=== PATIENT | female | born 1990 | race Caucasian/White ===

== ENCOUNTER 2017-10-29 03:21 | Emergency (ER) | payer MEDICAID, SELFPAY ==
[2017-10-29 03:24] VITALS: BP 133/80; PULSE 72; RESP 12; TEMP 36.8; O2SAT 100; BMI 31.2
--- NOTE | 2017-10-29 03:39 | HMH.EDMCLR ---
ED Disposition Clinical Impression: Medical clearance for incarceration Disposition: Home, Self-Care Condition on Discharge: Good Instructions: Drug Abuse and Drug Addiction - Critical Care Critical Care Time: No Attestation: On , the high probability of a clinically significant, sudden or life threatening deterioration of the following system(s) required my full and direct attention, intervention and personal management. The time I documented below is in addition to time spent performing reported procedures but includes the following listed in this critical care notation. Medical Decision Making - Medical Records Medical records reviewed: Yes: I reviewed the patient's medical records. Vital Signs: 10/29/17 03:24 Temperature 98.3 F Temperature Source Oral Pulse Rate [Left Radial] 72 Respiratory Rate 12 Blood Pressure [Right Arm] 133/80 Blood Pressure Mean [Right Arm] 97 Blood Pressure Source [Right Arm] Automatic Cuff Blood Pressure Position [Right Arm] Sitting 02 Sat by Pulse Oximetry 100 Oxygen Delivery Method Room Air - Lab Data Lab results reviewed: Yes: I reviewed the patient's lab results. - Chandan Inquiry Pt receiving controlled substance: No Medical Clearance HPI - General Chief complaint: Medical Clearance Stated complaint: medical clearance Time Seen by Provider: 10/29/17 03:39 Mode of Arrival: Ambulatory Description of Symptoms (Recalled from ER Triage Doc. by RN): Pt here for medical clearance - History of Present Illness HPI Narrative: no complaints - last used heroin sat am complaint: medical clearance requested Onset (ago): day(s) Home medications: Home Medications Medication Instructions Recorded Confirmed No Known Home Medications [No 10/29/17 10/29/17 Known Home Medications] Allergies/Adverse reactions: Allergies Allergy/AdvReac Type Severity Reaction Status Date / Time amoxicillin [From AMOXIL] Allergy Intermediate I-RASH Unverified 09/12/17 14:49 Penicillins [PENICILLINS] Allergy Intermediate I-RASH Unverified 09/12/17 14:49 [facility] History I have reviewed the patient's past medical history: Yes Medical History: Denies:: Cancer, Diabetes Mellitus Type 1, Diabetes Mellitus Type 2, MRSA Laterality Cases: Bilateral: Tonsillectomy Amputation: No Fractures: No - *Social History Educational Level: Attended College Smoking Status: Current every day smoker Tobacco Type: cigarettes # Packs/Day (cigarettes): 1 Alcohol Intake: never Substance Use Type: marijuana, heroin - Psychiatric History Expresses thoughts of harming self/others: None Suicide Plan Description: No Plan ROS Obtained: Yes All systems reviewed & no additional complaints - Constitutional Constitutional: Denies fever(s) - Eyes Eyes: Denies change in vision - ENT Ears, Nose, Mouth, and Throat: Denies sore throat - Cardiovascular Cardiovascular: Denies chest pain - Respiratory Respiratory: No cough - Gastrointestinal Gastrointestingal: Denies: nausea, vomiting - Musculoskeletal Musculoskeletal: Denies joint pain, Denies joint stiffness, Denies joint swelling - Integumentary/Breasts Skin/Breast: Denies rash - Neurologic Neurologic: Denies dizziness, Denies seizure-like activity Physical Exam - General General appearance: alert, in no apparent distress - Head Head exam: atraumatic, normocephalic - Eye Eye exam: Present: PERRL, EOMI. Absent: scleral icterus - ENT ENT exam: Present: mucous membranes dry - Neck Neck exam: Present: trachea midline - Respiratory Respiratory exam: Present: normal lung sounds bilaterally. Absent: respiratory distress - Cardiovascular Cardiovascular exam: Present: regular rate. Absent: systolic murmur - Abdominal Exam Abdominal exam: Present: soft - Extremities Exam Extremities exam: Present: full ROM - Neurological Exam Neurological exam: Present: alert, oriented X3, CN II-XII intact - Psychiatric
--- NOTE | 2017-10-29 03:43 | ED_ITS ---
ED Disposition Clinical Impression: Medical clearance for incarceration Disposition: Home, Self-Care Condition on Discharge: Good Instructions: Drug Abuse and Drug Addiction - Critical Care Critical Care Time: No Attestation: On , the high probability of a clinically significant, sudden or life threatening deterioration of the following system(s) required my full and direct attention, intervention and personal management. The time I documented below is in addition to time spent performing reported procedures but includes the following listed in this critical care notation. Medical Decision Making - Medical Records Medical records reviewed: Yes: I reviewed the patient's medical records. Vital Signs: 10/29/17 03:24 Temperature 98.3 F Temperature Source Oral Pulse Rate [Left Radial] 72 Respiratory Rate 12 Blood Pressure [Right Arm] 133/80 Blood Pressure Mean [Right Arm] 97 Blood Pressure Source [Right Arm] Automatic Cuff Blood Pressure Position [Right Arm] Sitting 02 Sat by Pulse Oximetry 100 Oxygen Delivery Method Room Air - Lab Data Lab results reviewed: Yes: I reviewed the patient's lab results. - Chandan Inquiry Pt receiving controlled substance: No Medical Clearance HPI - General Chief complaint: Medical Clearance Stated complaint: medical clearance Time Seen by Provider: 10/29/17 03:39 Mode of Arrival: Ambulatory Description of Symptoms (Recalled from ER Triage Doc. by RN): Pt here for medical clearance - History of Present Illness HPI Narrative: no complaints - last used heroin sat am complaint: medical clearance requested Onset (ago): day(s) Home medications: Home Medications Medication Instructions Recorded Confirmed No Known Home Medications [No 10/29/17 10/29/17 Known Home Medications] Allergies/Adverse reactions: Allergies Allergy/AdvReac Type Severity Reaction Status Date / Time amoxicillin [From AMOXIL] Allergy Intermediate I-RASH Unverified 09/12/17 14:49 Penicillins [PENICILLINS] Allergy Intermediate I-RASH Unverified 09/12/17 14:49 [facility] History I have reviewed the patient's past medical history: Yes Medical History: Denies:: Cancer, Diabetes Mellitus Type 1, Diabetes Mellitus Type 2, MRSA Laterality Cases: Bilateral: Tonsillectomy Amputation: No Fractures: No - *Social History Educational Level: Attended College Smoking Status: Current every day smoker Tobacco Type: cigarettes # Packs/Day (cigarettes): 1 Alcohol Intake: never Substance Use Type: marijuana, heroin - Psychiatric History Expresses thoughts of harming self/others: None Suicide Plan Description: No Plan ROS Obtained: Yes All systems reviewed & no additional complaints - Constitutional Constitutional: Denies fever(s) - Eyes Eyes: Denies change in vision - ENT Ears, Nose, Mouth, and Throat: Denies sore throat - Cardiovascular Cardiovascular: Denies chest pain - Respiratory Respiratory: No cough - Gastrointestinal Gastrointestingal: Denies: nausea, vomiting - Musculoskeletal Musculoskeletal: Denies joint pain, Denies joint stiffness, Denies joint swelling - Integumentary/Breasts Skin/Breast: Denies rash - Neurologic Neurologic: Denies dizziness, Denies seizure-like activity Physical Exam
[2017-10-29 03:55] VITALS: BP 130/78; PULSE 74; RESP 16; TEMP 36.9; O2SAT 100
== END 2017-10-29 03:57 | disposition home or self-care (01) ==
PROVIDERS: Emergency Provider Emergency Medicine
DX: Z02.89 Encounter for other administrative examinations (principal); F12.10 Cannabis abuse, uncomplicated; F11.10 Opioid abuse, uncomplicated; F17.210 Nicotine dependence, cigarettes, uncomplicated; F41.8 Other specified anxiety disorders; Z88.0 Allergy status to penicillin; Z88.1 Allergy status to other antibiotic agents
CPT/HCPCS: 99203; 99281

== ENCOUNTER → 2018-01-02 15:34 | Outpatient (CLI) | payer MEDICAID, SELFPAY ==
--- NOTE | 2018-01-02 15:41 | XR_ITS ---
XR KUB HISTORY: ITS.REASON: RT FLANK PAIN ORDERING PHYSICIAN: Jess Osborne PATIENT AGE: 27 years COMPARISON: None FINDINGS: The bowel gas pattern is unremarkable. No obvious obstruction.. No abnormal calcifications are evident. No obvious renal or ureteral calculi.. No acute bony anomalies evident. There is mild amount retained colonic feces. This could obscure overlying renal calculi. IMPRESSION: Mild amount retained colonic feces otherwise negative KUB
== END ==
PROVIDERS: PCP Nurse Practitioner Family; Visit Provider Nurse Practitioner Family
DX: R10.9 Unspecified abdominal pain (principal)
CPT/HCPCS: 74018

== ENCOUNTER → 2018-08-15 14:20 | Outpatient (CLI) | payer MEDICAID, SELFPAY ==
--- NOTE | 2018-08-15 14:20 | US_ITS ---
US OB transvaginal HISTORY: ITS.REASON: US OB Dates ORDERING PHYSICIAN: Terry Ahmadi MD PATIENT AGE: 27 years COMPARISON: None FINDINGS: An intrauterine gestational sac is present with a pole with a crown-rump length of 2.11cm correlating to gestational age of 8w6d. heart tones are present with an FHR of 151 bpm's. Yolk sac is noted. Adnexa: Left ovary not visualized. Right ovary has an unremarkable appearance. Small amount fluid in the cul-de-sac. IMPRESSION: Live intrauterine gestation at 8 weeks 6 days as described above. Estimated due date by Ultrasound is 03/21/2019
== END ==
PROVIDERS: PCP Family Medicine; Visit Provider Nurse Practitioner Obstetrics & Gynecology
DX: O26.841 Uterine size-date discrepancy, first trimester (principal)
CPT/HCPCS: 76817

== ENCOUNTER → 2018-10-29 13:22 | Outpatient (CLI) | payer MEDICAID, SELFPAY ==
--- NOTE | 2018-10-29 13:24 | US_ITS ---
US OB /maternal detail: INDICATION: ITS.REASON: US OB Complete ORDERING PHYSICIAN: Terry Ahmadi MD PATIENT AGE: 27 years TECHNIQUE: ultrasound transabdominal scanning. COMPARISON: No previous relevant studies. FINDINGS: Single viable intrauterine gestation. Cephalic position. Placenta: Posterior placenta grade 1. There is average amount fluid. The cervix appears satisfactory. Closed and measuring 3 cm in length. Complete survey performed and was unremarkable on the submitted images as in PACS. No discrete anomalies identified on survey imaging by technologist. Active fetus. Three-vessel cord with satisfactory umbilical cord insertion. 4- chamber heart noted. Survey of brain & ventricles unremarkable. Face and neck survey unremarkable. The nasion is not well seen due to the position Diaphragm and chest views unremarkable. Abdomen: Both kidneys noted and unremarkable. Stomach noted and satisfactory. Spine: Survey of the spine satisfactory with no anomalies identified nor imaged. Both arms and legs noted. Amniotic Fluid: Adequate. Maternal adnexa: No significant findings. Measurements: Average ultrasound age 19w6d. Gestational Age 19w4d. Estimated due date by ultrasound age 0603/19/2019/. Estimated weight 312 grams. BPD = 20w1d OFD = 20w2d HC = 19w3d AC = 20w2d FL = 19w2d Growth Percentile= 57% Heart Rate = 135 Cerebellum = 20w2d Humerus = 20w4d HC/AC is 1.11 (1.09-1.26). CI is 79% (70-86%). FL/BPD is 64%. FL/AC is 20%. IMPRESSION: There is a single live fetus which is in cephalic presentation with an average ultrasound age of 19 weeks and 6 days. No obvious anomalies. All parameters correlate. Please see above for detail.
[2018-11-09 23:12] LABS: Buprenorphine POSITIVE; Buprenorphine, Urine POSITIVE; Norbuprenorphine POSITIVE
== END ==
PROVIDERS: PCP Family Medicine; Visit Provider Nurse Practitioner Obstetrics & Gynecology
DX: Z36.0 Encounter for antenatal screening for chromosomal anomalies (principal); Z34.90 Encounter for supervision of normal pregnancy, unspecified, unspecified trimester
CPT/HCPCS: 76811; 80307

== ENCOUNTER → 2018-10-29 18:10 | Outpatient (CLI) | payer MEDICAID, SELFPAY | PROVIDERS: Visit Provider Nurse Practitioner Obstetrics & Gynecology | DX: Z34.90 Encounter for supervision of normal pregnancy, unspecified, unspecified trimester (principal) | CPT/HCPCS: 80307 ==

== ENCOUNTER 2018-12-04 09:48 | Outpatient (CLI) | payer MEDICAID, SELFPAY ==
[2018-12-04 10:18] VITALS: BP 117/72; PULSE 91; RESP 18; TEMP 36.9; O2SAT 97; BMI 33.6
[2018-12-04 10:25] LABS: Microscopic, Urine URINE MICROSCOPIC (MICROSCOPIC)
[2018-12-04 10:29] LABS: Appearance,Urine CLEAR (Clear); Bilirubin,Urine Negative (Negative); Blood, Urine Negative (Negative); Color,Urine YELLOW (Yellow); Glucose,Urine (UA) Negative (Negative); Ketones,Urine Negative (Negative); Leukocyte Esterase,Urine Negative (Negative); Nitrate,Urine Negative (Negative); Protein,Urine Negative (Negative); Specific Gravity, Urine 1.015 (1.005-1.030); Urobilinogen,Urine 0.2 EU/dl (0.2)
[2018-12-04 10:38] LABS: Amphetamine/Metha Screen,Urine Negative ng/mL (<1000); Barbiturates Screen,Urine Negative ng/mL (<200); Benzodiazepines Screen,Urine Negative ng/mL (<200); Cannabinoid Screen,Urine Negative ng/mL (<50); Cocaine Screen,Urine Negative ng/mL (<300); Methadone Screen,Urine Negative ng/mL (<300); Opiate Screen,Urine Negative ng/mL (<300); Phencyclidine Screen,Urine Negative ng/mL (<25)
[2018-12-04 10:45] VITALS: PULSE 86
[2018-12-04 10:59] LABS: Bacteria,Urine Trace /lpf; WBC,Urine Occasional #/hpf (0-3)
[2018-12-04 11:08] LABS: Fetal Fibronectin (Rapid) Negative (Negative)
== END 2018-12-04 11:15 | disposition home or self-care (01) ==
LOC: OBOUT 09:51 → OB 09:52
PROVIDERS: PCP Family Medicine; Visit Provider Nurse Practitioner Obstetrics & Gynecology
DX: O26.892 Other specified pregnancy related conditions, second trimester (principal); Z3A.24 24 weeks gestation of pregnancy; R05 Cough; R10.2 Pelvic and perineal pain
CPT/HCPCS: 59025; 80305; 81001; 82731; 94640

== ENCOUNTER → 2018-12-26 15:05 | Outpatient (CLI) | payer MEDICAID, SELFPAY ==
[2018-12-26 15:44] LABS: Basophils % 0.4 % (0.1-2.0); Eosinophils # 0.2 K/mm3 (0.0-0.4); Eosinophils % 2.6 % (0.1-12.0); Hematocrit 31.3 % (37.0-47.0); Lymphocytes % 34.8 % (10-50); Mean Corpuscular HGB Conc 35.1 g/dL (31.8-35.4); Mean Corpuscular Hemoglobin 30.8 pg (27.0-31.2); Mean Corpuscular Volume 87.8 fl (81-99); Mean Platelet Volume 7.6 fl (7.4-10.4); Monocytes # 0.4 K/mm3 (0.1-1.0); Monocytes % 4.9 % (1.7-9.3); Neutrophils # 4.9 K/mm3 (1.8-7.8); Neutrophils % 57.3 % (37.0-80.0); Platelet Count 254 K/mm3 (142-424); Red Blood Count 3.57 M/mm3 (4.20-5.40); Red Cell Distribution Width 13.4 % (11.5-17.5); White Blood Count 8.6 K/mm3 (4.8-10.8)
[2018-12-28 09:24] LABS: HIV Screen 4th Generation wRfx Non Reactive (Non Reactive)
[2018-12-28 17:20] LABS: Hepatitis B Surface Antigen Negative (Negative); Hepatitis C Antibody >11.0 s/co ratio (0.0-0.9); Rapid Plasma Reagin Ab Titer Non Reactive (NonRea<1:1)
== END ==
PROVIDERS: Visit Provider Nurse Practitioner Obstetrics & Gynecology
DX: Z34.90 Encounter for supervision of normal pregnancy, unspecified, unspecified trimester (principal)
CPT/HCPCS: 36415; 85025; 86592; 86703; 86762; 86850; 87340; 87380; G0432

== ENCOUNTER → 2018-12-27 12:07 | Outpatient (CLI) | payer MEDICAID, SELFPAY | PROVIDERS: PCP Family Medicine; Visit Provider Internal Medicine Cardiovascular Disease | DX: R00.2 Palpitations (principal); R06.09 Other forms of dyspnea; R07.89 Other chest pain; Z3A.23 23 weeks gestation of pregnancy; Z72.0 Tobacco use; Z87.898 Personal history of other specified conditions | CPT/HCPCS: 93270 ==

== ENCOUNTER → 2019-01-03 10:44 | Outpatient (CLI) | payer MEDICAID, SELFPAY ==
--- NOTE | 2019-01-03 10:46 | CA_ITS ---
PROCEDURE: 2-D M-mode and color Doppler study INDICATIONS FOR THE TEST: Chest painX COPD Heart Murmur Tobacco SmokingX PalpitationsX Fatigue Syncope Edema Hypertension Diabetes Mellitus Rheumatic Fever SOB DOEXObesity Hyperlipidemia Family History HDX Additional History H/O DRUG ABUSE,29 WEEKS PREGANT PATIENT INFORMATION HEIGHT: 61 WEIGHT:181 GENDER: Female B/P:110/73 2-D/M-MODE INTERPRETATION: 2-D MEASUREMENTS OBSERVED VALUES IN CMS Right Ventricular Dimension (RVDd) 2.1 Interventricular Septum (Thickness)(IVsd) 1.0 Left Ventricular Internal Dimensions(LVIDd) 4.9 Left Ventricular Posterior Wall (Thickness)(LVPWd) .9 Aortic Root 3.2 Aortic Cusp Separation 1.6 Left Atrial Dimensions (LAD) 2.5 2D 1. Left atrium is normal size, left ventricle is normal size, there is no concentric left ventricular hypertrophy, visually estimated ejection fraction 55% with no regional wall motion abnormality. 2. The right atrium and ventricle are normal size and contractility. 3. The aortic, mitral and tricuspid valvular grossly normal. 4. The pulmonic valve is poorly visualized. 5. No significant pericardial effusion noted. DOPPLER INTERROGATION: Doppler interrogation of the aortic, mitral and tricuspid valvular presence of mild mitral and tricuspid regurgitation, tricuspid regurgitation jet velocity is inadequate for calculation of the right ventricular systolic pressure, diastolic parameters are within normal range. CONCLUSION: 1. Normal left ventricular size, preserved left ventricular systolic function, visually estimated ejection fraction 55% with no regional wall motion abnormality, diastolic parameters are within normal range. 2. Mild mitral and tricuspid regurgitation, tricuspid regurgitation jet velocity is inadequate for calculation of the right ventricular systolic pressure. Inferior vena cava is not well visualized 3. No significant pericardial effusion noted.
== END ==
PROVIDERS: PCP Family Medicine; Visit Provider Internal Medicine Cardiovascular Disease
DX: R00.2 Palpitations (principal); R06.09 Other forms of dyspnea; R07.89 Other chest pain; Z3A.23 23 weeks gestation of pregnancy; Z72.0 Tobacco use; Z87.898 Personal history of other specified conditions
CPT/HCPCS: 93306

== ENCOUNTER → 2019-01-15 09:50 | Outpatient (CLI) | payer MEDICAID, SELFPAY ==
[2019-01-15 13:17] LABS: Glucose 1 Hour 94 mg/dL (74-106); Glucose,Fasting 81 mg/dL (60-105)
== END ==
PROVIDERS: Visit Provider Nurse Practitioner Obstetrics & Gynecology
DX: Z34.90 Encounter for supervision of normal pregnancy, unspecified, unspecified trimester (principal)
CPT/HCPCS: 36415; 82951

== ENCOUNTER → 2019-01-17 13:32 | Outpatient (CLI) | payer MEDICAID, SELFPAY ==
--- NOTE | 2019-01-17 13:34 | US_ITS ---
US OB follow up: Indication: ITS.REASON: US OB F/U- Recheck Anatomy ORDERING PHYSICIAN: Terry Ahmadi MD PATIENT AGE: 28 years FINDINGS: Previously the nasion was not identified on the anatomy scan of 10/29/2018. Today's images do demonstrate the nasion region which has an unremarkable appearance. The following parameters are obtained: Average ultrasound age is 30w1d. Estimated due date by ultrasound is 03/27/2019. Estimated weight is 1517 grams which is 15 th percentile BPD: 29w4d OFD: 30w6d HC: 30w1d AC: 30w2d FL: 30w1d heart rate: 142 bpm. HC/AC: 1.05 (0.96-1.17) Cephalic index: 74% (70-86%) FL/BPD: 78% (71-87%) FL/AC: 22% (20-24%) Amniotic fluid index: 9 cm No obvious anomalies evident. Placenta: Post GR 1 Cervix: Appears closed IMPRESSION: Live IUP at 30 weeks and 1 day. No obvious anomalies. Specifically, the nasion has an unremarkable appearance. The CHEPE is at lower limits of normal at 9 cm
== END ==
PROVIDERS: PCP Family Medicine; Visit Provider Nurse Practitioner Obstetrics & Gynecology
DX: Z36.89 Encounter for other specified antenatal screening (principal)
CPT/HCPCS: 76816

== ENCOUNTER 2019-02-13 06:36 | Outpatient (CLI) | payer MEDICAID, SELFPAY ==
[2019-02-13 06:46] VITALS: BMI 34.4
[2019-02-13 06:56] LABS: Appearance,Urine SL CLOUDY (Clear); Bilirubin,Urine Negative (Negative); Blood, Urine 3+ (Negative); Color,Urine YELLOW (Yellow); Glucose,Urine (UA) Negative (Negative); Ketones,Urine Negative (Negative); Leukocyte Esterase,Urine TRACE (Negative); Microscopic, Urine URINE MICROSCOPIC (MICROSCOPIC); Nitrate,Urine Negative (Negative); PH,Urine 6.5 (5.0-8.5); Protein,Urine TRACE (Negative); Urobilinogen,Urine 0.2 EU/dl (0.2)
[2019-02-13 06:59] VITALS: BP 134/70; PULSE 82; RESP 16; TEMP 36.7; O2SAT 100; BMI 34.4
[2019-02-13 07:04] LABS: Amphetamine/Metha Screen,Urine Negative ng/mL (<1000); Barbiturates Screen,Urine Negative ng/mL (<200); Benzodiazepines Screen,Urine Negative ng/mL (<200); Cannabinoid Screen,Urine Negative ng/mL (<50); Cocaine Screen,Urine Negative ng/mL (<300); Methadone Screen,Urine Negative ng/mL (<300); Opiate Screen,Urine Negative ng/mL (<300); Phencyclidine Screen,Urine Negative ng/mL (<25)
[2019-02-13 07:05] LABS: Bacteria,Urine Trace /lpf; Squamous Epithelial Cell,Urine 20-50 #/hpf (0-5); WBC,Urine Occasional #/hpf (0-3)
--- NOTE | 2019-02-13 07:14 | US_ITS ---
US OB BPP w/Fet-Mat S/D: Indication: Heavy vaginal bleeding ITS.REASON: R/O abruption ORDERING PHYSICIAN: Terry Ahmadi MD PATIENT AGE: 28 years FINDINGS: The following parameters are obtained: Average ultrasound age is 35 weeks 1 day. Estimated due date by ultrasound is 03/19/2019. Estimated weight is 2563 g. This is 50th percentile BPD: 34 weeks 2 days OFD: 39 weeks 0 days HC: 35 weeks 4 days AC: 34 weeks 6 days FL: 35 weeks 4 days heart rate: 149 bpm. HC/AC: 1.03 Cephalic index: 75% FL/BPD: 82% FL/AC: 23% Amniotic fluid index: 11 cm Qualitative AFV: 2 breathing movements: 2 Gross body movements: 2 Tone: 2 Biophysical profile score: 8/8 Doppler evaluation of the umbilical artery: SD ratio: 3.9 Resistive index: 0.74 No obvious anomalies evident. Placenta: Posterior and fundal and grade 2. Heterogeneous echogenicity is noted along the superior margin of placenta and along the amniotic surface of the placenta suspicious for a blood clot which could be related to an abruption along superior margin. The cervical area is not well demonstrated. IMPRESSION: 1. There is a single live fetus which is in cephalic presentation with average ultrasound age of 35 weeks and 1 day. heart tones are present. 2. Biophysical profile is 8 of 8. Normal amniotic fluid volume 3. SD ratio in resistive index are slightly elevated 4. There is heterogeneous echogenicity along the superior margin of the placenta suggestive of hemorrhage possibly from an abruption. The cervix is not well demonstrated on these images to adequately evaluate for previa.
[2019-02-13 08:02] LABS: Basophils % 0.3 % (0.1-2.0); Eosinophils # 0.2 K/mm3 (0.0-0.4); Eosinophils % 2.4 % (0.1-12.0); Hematocrit 33.1 % (37.0-47.0); Hemoglobin 11.8 g/dL (12.2-16.2); Lymphocytes # 4.3 K/mm3 (0.7-4.5); Lymphocytes % 44.7 % (10-50); Mean Corpuscular HGB Conc 35.6 g/dL (31.8-35.4); Mean Corpuscular Volume 87.1 fl (81-99); Mean Platelet Volume 8.6 fl (7.4-10.4); Monocytes # 0.6 K/mm3 (0.1-1.0); Monocytes % 6.3 % (1.7-9.3); Neutrophils # 4.5 K/mm3 (1.8-7.8); Neutrophils % 46.3 % (37.0-80.0); Platelet Count 222 K/mm3 (142-424); Red Blood Count 3.81 M/mm3 (4.20-5.40); Red Cell Distribution Width 12.7 % (11.5-17.5); White Blood Count 9.6 K/mm3 (4.8-10.8)
--- NOTE | 2019-02-13 08:09 | HMH.DCSUM ---
General - General Admission date:: 02/13/19 Discharge date: 02/13/19 HPI HPI: She is a 28-year-old 3 para 2 at 34+ weeks gestational age. She woke up this morning with vaginal bleeding. She came into labor and delivery. She does admit to having sexual intercourse last night. She has had 2 previous sections. She is a smoker and smokes about 3 cigarettes a day. She takes Subutex 16 mg daily. Hospital Course Hospital Course: She came into labor and delivery with contractions and vaginal bleeding. On examination her cervix is just 1 cm. There was copious blood in the vagina. She is however not actively bleeding at this point in time. Ultrasound shows the baby in the cephalic presentation with an anterior placenta. Amniotic fluid index is 11. Biophysical profile is 8 out of 8. Baby was very active. The nonstress test is reactive. SD ratio is 4.0. On the anterior placenta on the side there seems to be an area about 7 cm x 4 cm it looks like clot. There is no evidence of lower placental abruption or posterior abruption of the placenta. The area in question on the anterior placenta had no blood flow. I have spoken to Dr. Ravi at [facility] and we will transfer her to his care. She has received 1 dose of 12 mg Celestone and magnesium sulfate for her contractions. She has A positive blood, she is rubella immune and was group B streptococcus negative. She has hepatitis C+ antibodies. HIV and hepatitis B are negative. Objective Vital signs: Temp Pulse Resp BP Pulse Ox 98.1 F 82 16 134/70 100 02/13/19 06:59 02/13/19 06:59 02/13/19 06:59 02/13/19 06:59 02/13/19 06:59 - Detailed Eye Exam Eyelids: Left normal inspection Results Labs on day of discharge: Labs from last 24 hours 02/13/19 02/13/19 02/13/19 07:50 07:30 06:45 WBC 9.6 RBC 3.81 L Hgb 11.8 L Hct 33.1 L MCV 87.1 MCH 31.0 MCHC 35.6 H RDW 12.7 Plt Count 222 MPV 8.6 Neut % (Auto) 46.3 Lymph % (Auto) 44.7 [place] % (Auto) 6.3 Eos % (Auto) 2.4 Baso % (Auto) 0.3 Neut # (Auto) 4.5 Lymph # (Auto) 4.3 [place] # (Auto) 0.6 Eos # (Auto) 0.2 Baso # (Auto) 0.0 Urine Color Yellow Urine Appearance Sl cloudy Urine pH 6.5 Ur Specific [place] 1.010 Urine Protein Trace Urine Glucose (UA) Negative Urine Ketones Negative Urine Blood 3+ Urine Nitrate Negative Urine Bilirubin Negative Urine Urobilinogen 0.2 Ur Leukocyte Esterase Trace Urine RBC 3-5 Urine WBC Occasional Ur Squamous Epith Cells 20-50 Urine Bacteria Trace Urine Opiates Screen Urine Methadone Screen Ur Barbituates Screen Ur Phencyclidine Scrn Ur Amphetamines Screen U Benzodiazepines Scrn Urine Cocaine Screen U Marijuana (THC) Screen Blood Type Pending Antibody Screen Pending 02/13/19 06:45 WBC RBC Hgb Hct MCV MCH MCHC RDW Plt Count MPV Neut % (Auto) Lymph % (Auto) [place] % (Auto) Eos % (Auto) Baso % (Auto) Neut # (Auto) Lymph # (Auto) [place] # (Auto) Eos # (Auto) Baso # (Auto) Urine Color Urine Appearance Urine pH Ur Specific [place] Urine Protein Urine Glucose (UA) Urine Ketones Urine Blood Urine Nitrate Urine Bilirubin Urine Urobilinogen Ur Leukocyte Esterase Urine RBC Urine WBC Ur Squamous Epith Cells Urine Bacteria Urine Opiates Screen Negative Urine Methadone Screen Negative Ur Barbituates Screen Negative Ur Phencyclidine Scrn Negative Ur Amphetamines Screen Negative U Benzodiazepines Scrn Negative Urine Cocaine Screen Negative U Marijuana (THC) Screen Negative Blood Type Antibody Screen DS: Diagnosis - Discharge Diagnosis (1) Placental abruption Status: Acute (2) Previous section complicating Status: Acute (3) complicated by subutex maintenance, antepartu
--- NOTE | 2019-02-13 08:21 | P.DS_ITS ---
General - General Admission date:: 02/13/19 Discharge date: 02/13/19 HPI HPI: She is a 28-year-old 3 para 2 at 34+ weeks gestational age. She woke up this morning with vaginal bleeding. She came into labor and delivery. She does admit to having sexual intercourse last night. She has had 2 previous sections. She is a smoker and smokes about 3 cigarettes a day. She takes Subutex 16 mg daily. Hospital Course Hospital Course: She came into labor and delivery with contractions and vaginal bleeding. On examination her cervix is just 1 cm. There was copious blood in the vagina. She is however not actively bleeding at this point in time. Ultrasound shows the baby in the cephalic presentation with an anterior placenta. Amniotic fluid index is 11. Biophysical profile is 8 out of 8. Baby was very active. The nonstress test is reactive. SD ratio is 4.0. On the anterior placenta on the side there seems to be an area about 7 cm x 4 cm it looks like clot. There is no evidence of lower placental abruption or posterior abruption of the placenta. The area in question on the anterior placenta had no blood flow. I have spoken to Dr. Ravi at [facility] and we will transfer her to his care. She has received 1 dose of 12 mg Celestone and magnesium sulfate for her contractions. She has A positive blood, she is rubella immune and was group B streptococcus negative. She has hepatitis C+ antibodies. HIV and hepatitis B are negative. Objective Vital signs: Temp Pulse Resp BP Pulse Ox 98.1 F 82 16 134/70 100 02/13/19 06:59 02/13/19 06:59 02/13/19 06:59 02/13/19 06:59 02/13/19 06:59 - Detailed Eye Exam Eyelids: Left normal inspection Results Labs on day of discharge: Labs from last 24 hours 02/13/19 02/13/19 02/13/19 07:50 07:30 06:45 WBC 9.6 RBC 3.81 L Hgb 11.8 L Hct 33.1 L MCV 87.1 MCH 31.0 MCHC 35.6 H RDW 12.7 Plt Count 222 MPV 8.6 Neut % (Auto) 46.3 Lymph % (Auto) 44.7 [place] % (Auto) 6.3 Eos % (Auto) 2.4 Baso % (Auto) 0.3 Neut # (Auto) 4.5 Lymph # (Auto) 4.3 [place] # (Auto) 0.6 Eos # (Auto) 0.2 Baso # (Auto) 0.0 Urine Color Yellow Urine Appearance Sl cloudy Urine pH 6.5 Ur Specific [place] 1.010 Urine Protein Trace Urine Glucose (UA) Negative Urine Ketones Negative Urine Blood 3+ Urine Nitrate Negative Urine Bilirubin Negative Urine Urobilinogen 0.2 Ur Leukocyte Esterase Trace Urine RBC 3-5 Urine WBC Occasional Ur Squamous Epith Cells 20-50 Urine Bacteria Trace Urine Opiates Screen Urine Methadone Screen Ur Barbituates Screen Ur Phencyclidine Scrn Ur Amphetamines Screen U Benzodiazepines Scrn Urine Cocaine Screen U Marijuana (THC) Screen Blood Type Pending Antibody Screen Pending 02/13/19 06:45 WBC RBC Hgb Hct MCV MCH MCHC RD
== END 2019-02-13 08:53 | disposition short-term general hospital (02) | DRG 832 ==
LOC: OBOUT 06:38 → OB 06:40 → OBOUT 07:50 → OB 08:21
PROVIDERS: PCP Family Medicine; Referring Provider Nurse Practitioner Obstetrics & Gynecology; Visit Provider Nurse Practitioner Obstetrics & Gynecology
DX: O45.93 Premature separation of placenta, unspecified, third trimester (principal); O98.413 Viral hepatitis complicating pregnancy, third trimester; O34.211 Maternal care for low transverse scar from previous cesarean delivery; B19.20 Unspecified viral hepatitis C without hepatic coma; O99.333 Smoking (tobacco) complicating pregnancy, third trimester; F17.210 Nicotine dependence, cigarettes, uncomplicated; F19.11 Other psychoactive substance abuse, in remission; Z79.899 Other long term (current) drug therapy; Z3A.34 34 weeks gestation of pregnancy
CPT/HCPCS: 36415; 59025; 76819; 80305; 81001; 85025; 86850; 96360; 96372

== ENCOUNTER 2019-02-17 12:07 | Inpatient (IN) | payer MEDICAID, SELFPAY ==
[2019-02-17] VITALS (32 sets, daily range): BP systolic 90–150; BP diastolic 36–99; PULSE 62–103; RESP 14–20; TEMP 36.3–37.2; O2SAT 97–100; BMI 34.2
[2019-02-17 12:39] LABS: Cord Blood PH 7.21 (7.35-7.45)
[2019-02-17 12:56] LABS: Basophils % 0.2 % (0.1-2.0); Eosinophils # 0.1 K/mm3 (0.0-0.4); Eosinophils % 0.6 % (0.1-12.0); Hematocrit 28.8 % (37.0-47.0); Hemoglobin 10.4 g/dL (12.2-16.2); Lymphocytes % 29.5 % (10-50); Mean Corpuscular HGB Conc 36.1 g/dL (31.8-35.4); Mean Corpuscular Hemoglobin 31.2 pg (27.0-31.2); Mean Corpuscular Volume 86.3 fl (81-99); Mean Platelet Volume 8.5 fl (7.4-10.4); Monocytes # 1.3 K/mm3 (0.1-1.0); Monocytes % 7.5 % (1.7-9.3); Neutrophils # 10.5 K/mm3 (1.8-7.8); Neutrophils % 62.2 % (37.0-80.0); Platelet Count 398 K/mm3 (142-424); Red Blood Count 3.34 M/mm3 (4.20-5.40); Red Cell Distribution Width 12.8 % (11.5-17.5); White Blood Count 16.8 K/mm3 (4.8-10.8)
[2019-02-17 12:57] LABS: MANUAL DIFFERENTIAL MANUAL DIFFERENTIAL (MANUAL DIFF)
--- NOTE | 2019-02-17 13:02 | HMH.OPNOTE ---
Date of procedure: 02/17/19 Pre-op Diagnosis:: Abruptio placenta, vaginal bleeding, previous section Post-op Diagnosis:: Abruption of placenta, vaginal bleeding, previous section Procedure performed:: Emergent lower segment transverse section Surgeon:: Terry Ahmadi MD Pond Worker(s):: Dr. Bjearano FINAL ASSEMBLY INSPECTOR:: Db Akhtar Anesthesia: GETA Estimated blood loss (mL): 1,200 Clinical Note:: She is a 28-year-old lady at 35 weeks gestational age. She has had 2 previous sections. She was seen last week with vaginal bleeding and diagnosed with an abruption. She was sent to by ambulance for consultation and care. She was subsequently released a couple of days ago. She came in with vaginal bleeding and was pouring blood out of the vagina. As a result of that we called a stat section. Operative findings:: She delivered a liveborn male child at 12:32 PM on the afternoon of February 17, 2019. The baby had Apgars of 9 at 1 minute and 9 at 5 minutes. There was an area on the posterior placenta that had old blood clots approximately 10%. The uterus itself was full of old blood clots. Ovaries and tubes appeared normal. Operative note:: She was taken to the operating room where general anesthesia was found be adequate. She was prepped and draped in normal sterile fashion in the supine position with a leftward tilt. A Guerra catheter was in the bladder. A Pfannenstiel skin incision was made with knife then carried through to the underlying layer of fascia with knife. The fascia was opened in the midline with knife and extended laterally using Martinez scissors. [place] clamps were applied to the superior aspect of the fascial incision which was tented up and the underlying rectus muscles dissected off using Martinez scissors. The Linda clamps were then applied to the inferior aspect of the fascial incision which in a similar fashion was tented up and the underlying rectus muscles dissected off using Martinez scissors. The rectus muscles were then in the midline, the peritoneum identified, and entered sharply with Metzenbaum scissors. This incision was then extended superiorly and inferiorly with scissors. We had good visualization of the bladder inferiorly.The bladder peritoneum was then opened in the midline and extended laterally using Metzenbaum scissors. A bladder flap was created digitally. Transverse incision was made through the uterine muscle to the amnion. This incision was then extended laterally using fingers traction. The amnion was entered sharply with knife. There was clear amniotic fluid. The infant's head was then delivered atraumatically. This was followed by the anterior shoulder and the rest of the 's body atraumatically. The oropharynx and nasopharynx were bulb suctioned. The was then handed off to Dr. Ayala who assigned Apgars of 9 at 1 minute and 9 at 5 minutes. We then obtained cord blood as well as cord pH. Using gentle traction on the cord and countertraction on the fundus I was able to easily deliver the placenta intact. It had a normal three-vessel cord. The uterus was then cleared of clots and debris . There was a handful of old clot within the uterus. The uterine incision was then closed using running 0 Vicryl suture in a locked fashion. A second layer of the same suture was used to imbricate the first layer. There was a small blood vessel on the left side that was oozing and I applied [id number] sutures here to obtain excellent hemostasis. The bladder peritoneum was then closed using running 2-0 Vicryl suture in a locked fashion. The gutters and cul-de-sac were then cleared of clots and debris . Once again hemostasis was assured. The peritoneum was grasped with Anum clamps and closed using running 2-0 Vicryl suture. The rectus muscles were then reapproximated using running 0 Vicryl suture. The fascia was closed using running #1 Vicryl suture. The subcutaneous tissues
[2019-02-17 13:03] LABS: Microscopic, Urine URINE MICROSCOPIC (MICROSCOPIC)
--- NOTE | 2019-02-17 13:08 | P.OP_ITS ---
Date of procedure: 02/17/19 Pre-op Diagnosis:: Abruptio placenta, vaginal bleeding, previous section Post-op Diagnosis:: Abruption of placenta, vaginal bleeding, previous section Procedure performed:: Emergent lower segment transverse section Surgeon:: Terry Ahmadi MD Electrical Fitter(s):: Dr. Bejarano BEAUTY SALES ADVISOR:: Db Akhtar Anesthesia: GETA Estimated blood loss (mL): 1,200 Clinical Note:: She is a 28-year-old lady at 35 weeks gestational age. She has had 2 previous sections. She was seen last week with vaginal bleeding and diagnosed with an abruption. She was sent to by ambulance for consultation and care. She was subsequently released a couple of days ago. She came in with vaginal bleeding and was pouring blood out of the vagina. As a result of that we called a stat section. Operative findings:: She delivered a liveborn male child at 12:32 PM on the afternoon of February 17, 2019. The baby had Apgars of 9 at 1 minute and 9 at 5 minutes. There was an area on the posterior placenta that had old blood clots approximately 10%. The uterus itself was full of old blood clots. Ovaries and tubes appeared normal. Operative note:: She was taken to the operating room where general anesthesia was found be adequate. She was prepped and draped in normal sterile fashion in the supine position with a leftward tilt. A Guerra catheter was in the bladder. A Pfannenstiel skin incision was made with knife then carried through to the underlying layer of fascia with knife. The fascia was opened in the midline with knife and extended laterally using Martinez scissors. [place] clamps were applied to the superior aspect of the fascial incision which was tented up and the underlying rectus muscles dissected off using Martinez scissors. The Linda clamps were then applied to the inferior aspect of the fascial incision which in a similar fashion was tented up and the underlying rectus muscles dissected off using Martinez scissors. The rectus muscles were then in the midline, the peritoneum identified, and entered sharply with Metzenbaum scissors. This incision was then extended superiorly and inferiorly with scissors. We had good visualization of the bladder inferiorly.The bladder peritoneum was then opened in the midline and extended laterally using Metzenbaum scissors. A bladder flap was created digitally. Transverse incision was made through the uterine muscle to the amnion. This incision was then extended laterally using fingers traction. The amnion was entered sharply with knife. There was clear amniotic fluid. The infant's head was then delivered atraumatically. This was followed by the anterior shoulder and the rest of the 's body atraumatically. The oropharynx and nasopharynx were bulb suctioned. The was then handed off to Dr. Ayala who assigned Apgars of 9 at 1 minute and 9 at 5 minutes. We then obtained cord blood as well as cord pH. Using gentle traction on the cord and countertraction on the fundus I was able to easily deliver the placenta intact. It had a normal three-vessel cord. The uterus was then cleared of clots and debris . There was a handful of old clot within the uterus. The uterine incision was then closed using running 0 Vicryl suture in a locked fashion. A second layer of the same suture was used to imbricate the first layer. There was a small blood vessel on the left side that was oozing and I applied [id number] sutures here to obtain excellent hemostasis. The bladder peritoneum was then closed using running 2-0 Vicryl suture in a locked fashion. The gutters and cul-de-sac were then cleared of clots and debris . Onc
--- NOTE | 2019-02-17 13:10 | XR_ITS ---
XR pelvis 1-2V HISTORY: emergency evaluation for foreign object ORDERING PHYSICIAN: Terry Ahmadi MD PATIENT AGE: 28 years COMPARISON: None FINDINGS: There are multiple transversely oriented surgical tana crossing the lower pelvis. A Guerra catheter seen in place. There is minimal scattered stool in the descending colon and in the rectum. There are no metallic surgical instruments identified in the visualized portion of the lower abdomen and pelvis. IMPRESSION: Postoperative emergency with findings as described
--- NOTE | 2019-02-17 13:10 | HMH.OBAPHP ---
OB - H&P: HPI Antepartum - History of Present Illness Chief complaint: Vaginal bleeding History of present illness: She is a 28-year-old lady at 35 weeks gestational age. She is had 2 previous sections. She was seen in labor and delivery earlier in the week with vaginal bleeding. An abruption was diagnosed. She was sent to [facility] by ambulance for care. She was separately observed there for a few days and then discharged home a couple of days ago. She began having vaginal bleeding this morning. On arrival at the hospital she was bleeding copiously from the vagina. Her cervix was unchanged. heart tones were present. - History of Present Criteria for establishing EDC:: LMP confirmed by 1st trimester US care: good care Ultrasounds: normal 1st trimester US, normal mid trimester US Obstetrical complications: other Medical complications: none, other Narrative: She has hepatitis C positive. [facility] History I have reviewed the patient's past medical history: Yes Medical History: Reports:: Hepatitis, Palpitations Denies:: Cancer, Diabetes Mellitus Type 1, Diabetes Mellitus Type 2, MRSA *Have you ever received a pneumonia vaccine?: No *Have you received a flu vaccine this season?: No Other Medical History: Reports: Other Laterality Cases: Bilateral: Tonsillectomy Other Surgeries: Yes: Amputation: No Fractures: No - *Social History Smoking Status: Current every day smoker Tobacco Type: cigarettes # Packs/Day (cigarettes): 1 Alcohol Intake: never Substance Use Type: former substance user, heroin, IV drugs *Occupational Status:: employed Housing: house Household Members: friend(s) *Travel in the last 8 weeks: None Family Hx:: Coronary Artery Disease, Heart Attack, Diabetes Para: 2 Review of Systems - Review of Systems Review of systems:: pertinent systems reviewed and negative unless documented below Meds Home Medications Medication Instructions Recorded Confirmed Type vits 96-ferrous fumarate 1 tab PO DAILY 30 Days #30 tab 08/06/18 02/13/19 History 27 mg iron-folic acid 800 mcg tablet buprenorphine HCl 8 mg sublingual 8 mg SUBLINGUAL BID 16 Days #16 tab 12/27/18 02/13/19 History tablet Allergies Allergy/AdvReac Type Severity Reaction Status Date / Time amoxicillin [From AMOXIL] Allergy Intermediate I-RASH Verified 02/06/19 15:24 Penicillins [PENICILLINS] Allergy Intermediate I-RASH Verified 02/06/19 15:24 OB - H&P: Exam - Physical Exam Vital signs: Temp Pulse Resp BP Pulse Ox 98.9 F 62 18 148/99 H 100 02/17/19 11:39 02/17/19 11:39 02/17/19 11:39 02/17/19 11:39 02/17/19 11:39 - Constitutional no acute distress - Routine HEENT Exam Head: Present: normocephalic Eye: Present: EOMI, PERRL ENT: Present: mucous membranes moist - Routine Neck Exam Present: supple, full ROM - Routine Respiratory Exam Absent: accessory muscle use (good air entry bilaterally), respiratory distress, wheezes, crackles - Routine Cardiovascular Exam Present: RRR. Absent: murmur - Routine Abdominal Exam Present: soft, normoactive bowel sounds. Absent: tenderness, distended, guarding - Routine Rectal Exam Patient deferred: visual exam, digital exam - Routine Exam Patient deferred: external exam, groin exam, perineal exam - Routine Extremities Exam Present: full ROM. Absent: cyanosis, edema - Routine Skin Exam Present: intact. Absent: cyanosis - Routine Neurological Exam Present: alert, oriented X3 - Routine Psychiatric Exam Present: normal affect OB - Results - Labs Labs: Short CBC 02/17/19 Range/Units 12:00 WBC 16.8 H (4.8-10.8) K/mm3 Hgb 10.4 L (12.2-16.2) g/dL Hct 28.8 L (37.0-47.0) % Plt Count 398 (142-424) K/mm3 OB - A/P Antepartum (1) Hepatitis C antibody positive in blood Current visit: No Status: Acute (2) Placental abruption Current visit: No Status: Acu
[2019-02-17 13:16] LABS: Appearance,Urine CLOUDY (Clear); Bilirubin,Urine Negative (Negative); Blood, Urine 3+ (Negative); Color,Urine RED (Yellow); Glucose,Urine (UA) Negative (Negative); Ketones,Urine Negative (Negative); Leukocyte Esterase,Urine Negative (Negative); Nitrate,Urine Negative (Negative); Protein,Urine TRACE (Negative); Specific Gravity, Urine 1.015 (1.005-1.030); Urobilinogen,Urine 0.2 EU/dl (0.2)
[2019-02-17 13:17] LABS: Eosinophils % 1 % (0-3); Lymphocytes % 29 % (10-50); Monocytes % 8 % (2-9); Neutrophils % 62 % (42-76); Nucleated Red Blood Cells 1; Platelet Estimate Normal; RBC Morphology Normal; Total Cells Counted 100
[2019-02-17 13:23] LABS: Amphetamine/Metha Screen,Urine Negative ng/mL (<1000); Barbiturates Screen,Urine Negative ng/mL (<200); Benzodiazepines Screen,Urine Negative ng/mL (<200); Cannabinoid Screen,Urine Negative ng/mL (<50); Cocaine Screen,Urine Negative ng/mL (<300); Methadone Screen,Urine Negative ng/mL (<300); Opiate Screen,Urine Negative ng/mL (<300); Phencyclidine Screen,Urine Negative ng/mL (<25)
[2019-02-17 13:24] LABS: Bacteria,Urine Trace /lpf; RBC,Urine TNTC #/hpf (0-3)
--- NOTE | 2019-02-17 13:45 | HMH.PROC ---
[facility] Procedure Note Procedure Note:: Unable to perform assessment due to emergent status, stat
--- NOTE | 2019-02-17 13:47 | P.PN_ITS ---
[facility] Anesthesia Record Part I Intake, IV Amount: 2,200 Estimated blood loss (mL): 1,500 Urine output (mL): 100 Blood Products used (#): PRBC's (First PRBC hung upon arrival to PACU) Blood Pressure: 97/55 SaO2: 98 Pulse Rate: 86 Respiratory Rate: 14 Temperature: 97.3 F Patient is:: Awake, Drowsy, Stable Stable to PACU at:: 13:35
--- NOTE | 2019-02-17 13:49 | P.PN_ITS ---
[facility] Anesthesia Record Part II Discharge Time: 14:05 Destination: Obstetric PACU nurse assessment reviewed?: Yes Patient Condition:: Good Anesthesia Complications:: None Swallowing reflex intact?: Yes Cyanosis?: No
--- NOTE | 2019-02-17 16:44 | SUR.PHASEI ---
Pt to OR #2 emergent r/t placental ubruption, no count of instruments, laps, suture or rest of supplies used. No pre op antibiotic ordered at this time r/t to emergent situation. Healthy male delivered at 1232. At 1235 Dorothy,RED HAT ENGINEER gave Ancef [address] Ahmadi's order. At 1259 made call to radiology for stat xray of abdomen r/t emergent situation/no count of instruments and laps/protocol. engineer technician to OR#2, xray taken and Dr Dillon called OR#2 at 1329 to confirm he did not see anything but tana (used to closed incision) and montanez catheter. Safe to proceed to PACU.
[2019-02-17 18:34] LABS: Hemoglobin 10.3 g/dL (12.2-16.2)
[2019-02-17 18:37] LABS: Hematocrit 28.4 % (37.0-47.0)
[2019-02-18 06:59] LABS: Basophils % 0.1 % (0.1-2.0); Eosinophils % 0.1 % (0.1-12.0); Lymphocytes # 3.1 K/mm3 (0.7-4.5); Lymphocytes % 18.6 % (10-50); Mean Corpuscular HGB Conc 35.6 g/dL (31.8-35.4); Mean Corpuscular Hemoglobin 30.4 pg (27.0-31.2); Mean Corpuscular Volume 85.5 fl (81-99); Mean Platelet Volume 8.2 fl (7.4-10.4); Monocytes # 1.1 K/mm3 (0.1-1.0); Monocytes % 6.6 % (1.7-9.3); Neutrophils # 12.2 K/mm3 (1.8-7.8); Neutrophils % 74.6 % (37.0-80.0); Platelet Count 226 K/mm3 (142-424); Red Blood Count 2.93 M/mm3 (4.20-5.40); Red Cell Distribution Width 13.9 % (11.5-17.5); White Blood Count 16.4 K/mm3 (4.8-10.8)
[2019-02-18 07:07] LABS: MANUAL DIFFERENTIAL MANUAL DIFFERENTIAL (MANUAL DIFF)
[2019-02-18 07:59] LABS: Lymphocytes % 14 % (10-50); Monocytes % 7 % (2-9); Neutrophils % 79 % (42-76); Platelet Estimate Normal; Total Cells Counted 100
--- NOTE | 2019-02-18 13:23 | HMH.ACPN2 ---
Internal Medicine - PN: Subj *Date: 02/18/19 *Time: 13:23 Interval history: She is doing well post emergency section. She is eating and drinking and ambulating. She is bottlefeeding. Her lochia is normal. Her hemoglobin has stabilized. She did receive 2 units of packed red blood cells yesterday. Exam Vital signs and Labs for Last 24 Hours: Temp Pulse Resp BP Pulse Ox 98.3 F 76 18 110/68 98 02/17/19 19:47 02/17/19 19:47 02/17/19 19:47 02/17/19 19:47 02/17/19 19:47 Laboratory Results - last 24 hr 02/17/19 11:42: Urine RBC Tntc, Ur Squamous Epith Cells 3-5, Urine Bacteria Trace 02/17/19 11:42: Urine Opiates Screen Negative, Urine Methadone Screen Negative, Ur Barbituates Screen Negative, Ur Phencyclidine Scrn Negative, Ur Amphetamines Screen Negative, U Benzodiazepines Scrn Negative, Urine Cocaine Screen Negative, U Marijuana (THC) Screen Negative 02/17/19 12:00: Blood Type A Positive, Antibody Screen Negative, Crossmatch (AHG) See Detail 02/17/19 18:25: Hgb 10.3 L, Hct 28.4 L 02/18/19 06:26: WBC 16.4 H, RBC 2.93 L, Hgb 9.0 L D, Hct 25.0 L, MCV 85.5, MCH 30.4, MCHC 35.6 H, RDW 13.9, Plt Count 226 D, MPV 8.2, Neut % (Auto) 74.6, Lymph % (Auto) 18.6, [place] % (Auto) 6.6, Eos % (Auto) 0.1, Baso % (Auto) 0.1, Neut # (Auto) 12.2 H, Lymph # (Auto) 3.1, [place] # (Auto) 1.1 H, Eos # (Auto) 0.0, Baso # (Auto) 0.0, Total Counted 100, Neutrophils % (Manual) 79 H, Lymphocytes % (Manual) 14, Monocytes % (Manual) 7, Platelet Estimate Normal, RBC Morphology Not Reportable I & O for Last 24 hours: Intake & Output 02/16/19 02/17/19 02/18/19 02/19/19 11:59 11:59 11:59 11:59 Intake Total 2450 / 2450 Output Total 100 / 100 Balance 2350 / 2350 Weight 181 lb - Constitutional no acute distress Assessment and Plan (1) Hepatitis C antibody positive in blood Current visit: No Status: Acute Category: Medical Code(s): R76.8 - Other specified abnormal immunological findings in serum (2) Placental abruption Current visit: No Status: Acute Category: Medical Code(s): O45.90 - Premature separation of placenta, unspecified, unspecified trimester (3) Previous section complicating Current visit: No Status: Acute Category: Medical Code(s): O34.219 - Maternal care for unspecified type scar from previous delivery (4) complicated by subutex maintenance, antepartum Current visit: No Status: Acute Category: Medical Code(s): O99.320 - Drug use complicating , unspecified trimester; F11.20 - Opioid dependence, uncomplicated (5) History of drug use Current visit: No Status: Chronic Category: Medical Code(s): Z87.898 - Personal history of other specified conditions (6) Tobacco user Current visit: No Status: Chronic Category: Medical Code(s): Z72.0 - Tobacco use - Assessment and plan all Dx Assessment and Plan for all problems:: She continues to do well. We will plan to send her home in 48 hours time.
--- NOTE | 2019-02-19 08:20 | HMH.ACPN2 ---
Internal Medicine - PN: Subj *Date: 02/19/19 *Time: 08:20 Interval history: She is doing well today. She is eating and drinking and ambulating. She is bottlefeeding. Her lochia is normal. Her incision is clean and dry Exam Vital signs and Labs for Last 24 Hours: Temp Pulse Resp BP Pulse Ox 98.3 F 76 18 110/68 98 02/17/19 19:47 02/17/19 19:47 02/17/19 19:47 02/17/19 19:47 02/17/19 19:47 I & O for Last 24 hours: Intake & Output 02/16/19 02/17/19 02/18/19 02/19/19 11:59 11:59 11:59 11:59 Intake Total 2450 / 2450 Output Total 100 / 100 Balance 2350 / 2350 Weight 181 lb - Constitutional no acute distress - *Routine Abdominal Exam Present: soft, normoactive bowel sounds. Absent: tenderness, rebound, guarding, mass Comments: Her incision is clean and dry Assessment and Plan (1) Hepatitis C antibody positive in blood Current visit: No Status: Acute Category: Medical Code(s): R76.8 - Other specified abnormal immunological findings in serum (2) Placental abruption Current visit: No Status: Acute Category: Medical Code(s): O45.90 - Premature separation of placenta, unspecified, unspecified trimester (3) Previous section complicating Current visit: No Status: Acute Category: Medical Code(s): O34.219 - Maternal care for unspecified type scar from previous delivery (4) complicated by subutex maintenance, antepartum Current visit: No Status: Acute Category: Medical Code(s): O99.320 - Drug use complicating , unspecified trimester; F11.20 - Opioid dependence, uncomplicated (5) History of drug use Current visit: No Status: Chronic Category: Medical Code(s): Z87.898 - Personal history of other specified conditions (6) Tobacco user Current visit: No Status: Chronic Category: Medical Code(s): Z72.0 - Tobacco use - Assessment and plan all Dx Assessment and Plan for all problems:: She continues to do well. We will plan to send her home tomorrow.
--- NOTE | 2019-02-19 11:09 | SW/DCPLANNER ---
Addendum entered by Mary Heck 02/19/19 14:12: ID# for this case is [id number]. Original Note: I received notification regarding patient with maternal drug hx, does not have custody of her other children, and current Subutex use. Patient is enrolled in Subutex Clinic: [facility] in [facility]. This has been verified by pharmacy and patient is receiving medication during [facility] stay. I did speak with patient this morning. Infant male (Oswald Pollock) was born on 02/17/2020. Infants father ( Gaudencio Pollock 04/19/86) is involved per patient but was NOT present during my visit. Patient stated that she does have two other children: Arnaldo Nance 10/16/09 and Deborah Nance 08/11/11. Patient stated that she does NOT have custody of these children, it was an agreement and not a DCBS case, and they live with their father since they were 3 and 4. Patient stated that she has not had any past social service involvement. Patient stated that at time of discharge she will reside at [address] [place] [address] with: Krysten Nance (friend) and her three children: Margarita Cherry, Katerine Cherry, and Gadiel Rivera ages 13-18. Patient stated that she will sign up with [facility] at time of discharge. Patient stated that she does have a crib, carseat, clothing, and diapers at home. Patient has been with [facility] for a year now. The plan for this patient is to discharge home tomorrow pending no setbacks. I will report this situation to Central Intake and follow up with an ID#.
--- NOTE | 2019-02-19 12:56 | SUR.PHASEI ---
Emergent PRBC given 02/17/19 in PACU from [id number], blood verified between Db Akhtar CRNA and Josette Nance RN, blood VS documented.
--- NOTE | 2019-02-20 09:32 | HMH.DCSUM ---
General - General Admission date:: 02/17/19 Discharge date: 02/20/19 HPI HPI: She is a 28-year-old 3 para 2 who was 35 weeks gestational age. She was seen a week prior to admission and sent down to with a possible abruption. She was observed there and then discharged home. She arrived here with copious vaginal bleeding. As result of that she was taken for an emergent section. Hospital Course Hospital Course: On February 17, 2019 she underwent a repeat lower segment transverse section for a placental abruption. She delivered a liveborn male child at 12:32 PM. He had Apgars of 9 at 1 and 9 at 5 minutes. pH was normal. He weighed 5 pounds 3 ounces and was 17-1/2 inches long. She has done well postoperatively and has remained afebrile throughout her hospitalization. She is eating and drinking and ambulate in. Her pain is reasonably well controlled. Her incision is clean and dry. She has a positive blood, she is rubella immune and was group B stopcock is negative. She is discharged home to follow-up with me in approximately 2 weeks time. She will continue with her vitamins and iron. She was given a prescription for Percocet 5/325 number 20 tablets. She was given a prescription for Motrin. Her condition on discharge is stable. Rhogam Administration: Not Indicated Objective Vital signs: Temp Pulse Resp BP Pulse Ox 98.3 F 76 18 110/68 98 02/17/19 19:47 02/17/19 19:47 02/17/19 19:47 02/17/19 19:47 02/17/19 19:47 no acute distress - *Routine HEENT Exam Head: Present: normocephalic - *Routine Abdominal Exam Present: soft, normoactive bowel sounds Comments: Her incision is clean and dry DS: Diagnosis - Discharge Diagnosis (1) Hepatitis C antibody positive in blood Status: Acute (2) Placental abruption Status: Acute (3) Previous section complicating Status: Acute (4) complicated by subutex maintenance, antepartum Status: Acute (5) History of drug use Status: Chronic (6) Tobacco user Status: Chronic Discharge Plan - Patient Discharge Instructions ACTIVITY: No heavy lifting DIET: continue same diet Additional Instructions: NOTHING IN VAGINA FOR SIX WEEKS FOLLOW UP WITH DR LPOEZ ON NO HEAVY LIFTING NO STRENUOUS ACTIVITY Patient Instructions: [facility] DC Instructions for Drug Use During , [facility] Post Discharge Instructions - Follow up Plan Disposition: Home, Self-Usp Medications: Home Medications Medication Instructions Recorded Confirmed Type vits 96-ferrous fumarate 1 tab PO DAILY 30 Days #30 tab 08/06/18 02/17/19 History 27 mg iron-folic acid 800 mcg tablet buprenorphine HCl 8 mg sublingual 8 mg SUBLINGUAL BID 16 Days #16 tab 12/27/18 02/17/19 History tablet Ibuprofen [Motrin 400mg 400 mg PO Q4HP PRN #40 tab 02/20/19 Rx tablet] Oxycodone HCl/Acetaminophen 1 - 2 tab PO Q4-6H PRN #20 tab 02/20/19 Rx [Percocet 5/325mg tablet] Prescriptions/Medication Reconciliation: New Oxycodone HCl/Acetaminophen [Percocet 5/325mg tablet] 1 - 2 tab PO Q4-6H PRN #20 tab PRN Reason: Severe Pain Ibuprofen [Motrin 400mg tablet] 400 mg PO Q4HP PRN #40 tab PRN Reason: Moderate Pain Continued buprenorphine HCl 8 mg sublingual tablet 8 mg SUBLINGUAL BID 16 Days #16 tab vits 96-ferrous fumarate 27 mg iron-folic acid 800 mcg tablet 1 tab PO DAILY 30 Days #30 tab
--- NOTE | 2019-02-20 09:36 | P.DS_ITS ---
General - General Admission date:: 02/17/19 Discharge date: 02/20/19 HPI HPI: She is a 28-year-old 3 para 2 who was 35 weeks gestational age. She was seen a week prior to admission and sent down to with a possible abruption. She was observed there and then discharged home. She arrived here with copious vaginal bleeding. As result of that she was taken for an emergent section. Hospital Course Hospital Course: On February 17, 2019 she underwent a repeat lower segment transverse section for a placental abruption. She delivered a liveborn male child at 12:32 PM. He had Apgars of 9 at 1 and 9 at 5 minutes. pH was normal. He weighed 5 pounds 3 ounces and was 17-1/2 inches long. She has done well postoperatively and has remained afebrile throughout her hospitalization. She is eating and drinking and ambulate in. Her pain is reasonably well controlled. Her incision is clean and dry. She has a positive blood, she is rubella immune and was group B stopcock is negative. She is discharged home to follow-up with me in approximately 2 weeks time. She will continue with her vitamins and iron. She was given a prescription for Percocet 5/325 number 20 tablets. She was given a prescription for Motrin. Her condition on discharge is stable. Rhogam Administration: Not Indicated Objective Vital signs: Temp Pulse Resp BP Pulse Ox 98.3 F 76 18 110/68 98 02/17/19 19:47 02/17/19 19:47 02/17/19 19:47 02/17/19 19:47 02/17/19 19:47 no acute distress - *Routine HEENT Exam Head: Present: normocephalic - *Routine Abdominal Exam Present: soft, normoactive bowel sounds Comments: Her incision is clean and dry DS: Diagnosis - Discharge Diagnosis (1) Hepatitis C antibody positive in blood Status: Acute (2) Placental abruption Status: Acute (3) Previous section complicating Status: Acute (4) complicated by subutex maintenance, antepartum Status: Acute (5) History of drug use Status: Chronic (6) Tobacco user Status: Chronic Discharge Plan - Patient Discharge Instructions ACTIVITY: No heavy lifting DIET: continue same diet Additional Instructions: NOTHING IN VAGINA FOR SIX WEEKS FOLLOW UP WITH DR LOPEZ ON NO HEAVY LIFTING NO STRENUOUS ACTIVITY Patient Instructions: [facility] DC Instructions for Drug Use During , [facility] Post Discharge Instructions - Follow up Plan Disposition: Home, Self-Skilled Nursing Medications: Home Medications Medication Instructions Recorded Confirmed Type vits 96-ferrous fumarate 1 tab PO DAILY 30 Days #30 tab 08/06/18 02/17/19 History 27 mg iron-folic acid 800 mcg tablet buprenorphine HCl 8 mg sublingual 8 mg SUBLINGUAL BID 16 Days #16 tab 12/27/18 02/17/19 History tablet Ibuprofen [Motrin 400mg 400 mg PO Q4HP PRN #40 tab 02/20/19 Rx tablet] Oxycodone HCl/Acetaminophen 1 - 2 tab PO Q4-6H PRN #20 tab 02/20/19 Rx [Percocet 5/325mg tablet] Prescriptions/Medication Reconciliation: New Oxycodone HCl/Acetaminophen [Percocet 5/325mg tablet] 1 - 2 tab PO Q4-6H PRN #20 tab PRN Reason: Severe Pain Ibuprofen [Motrin 400mg tablet] 400 mg PO Q4HP PRN #40 tab PRN Reason: Moderate Pain
--- NOTE | 2019-02-20 09:59 | SW/DCPLANNER ---
Called [facility] this morning and spoke with Jose, gave him ID# [id number] and he stated they did not accept this case.. I notified Maren in the OB dept to let her know since patient has been discharged...
[2019-02-22 07:33] LABS: Buprenorphine, Urine Positive (Cutoff=10)
== END 2019-02-20 10:59 | disposition home or self-care (01) | DRG 788 ==
LOC: OBOUT 12:07
PROVIDERS: Admitting Provider Nurse Practitioner Obstetrics & Gynecology; PCP Family Medicine; Visit Provider Nurse Practitioner Obstetrics & Gynecology
PROC: 10D00Z1 Extraction of Products of Conception, Low, Open Approach (ICD-10-PCS; CPT 59514; principal; 2019-02-17 12:15)
DX: O45.8X3 Other premature separation of placenta, third trimester (principal); Z3A.35 35 weeks gestation of pregnancy; Z37.0 Single live birth; B19.20 Unspecified viral hepatitis C without hepatic coma; O99.330 Smoking (tobacco) complicating pregnancy, unspecified trimester; F17.210 Nicotine dependence, cigarettes, uncomplicated; O34.211 Maternal care for low transverse scar from previous cesarean delivery; N85.8 Other specified noninflammatory disorders of uterus; F19.11 Other psychoactive substance abuse, in remission
CPT/HCPCS: 59514; 36415; 72170; 80305; 80307; 81001; 82800; 85007; 85014; 85018; 85025; 86850; 88307; 94761; J0131; J0571; J2405; J2710; P9016

== ENCOUNTER 2020-04-11 12:21 | Emergency (ER) | payer MEDICAID, SELFPAY ==
[2020-04-11 12:23] VITALS: BP 124/87; PULSE 72; RESP 18; TEMP 37.1; O2SAT 94; BMI 29.7
--- NOTE | 2020-04-11 12:38 | XR_ITS ---
PROCEDURE: XR CHEST 2V Patient Age:29Y CLINICAL HISTORY: COUGH Vomiting. Smoker. COMPARISON: No exams were available for comparison FINDINGS: Today's PA and lateral chest shows no definite nor significant change since July 2019 CXR The cardiomediastinal silhouette and pulmonary vascularity are within normal limits. The lungs are clear without infiltrates, suspicious nodules, or pleural effusions. No acute bony abnormalities. IMPRESSION: No acute findings. Stable chest with nothing definitely acute. Dictated by: Tian Hall MD 04/11/2020 14:25 Electronically signed by Tian Hall MD in [place] 04/11/2020 14:25
[2020-04-11 13:01] VITALS: BP 104/63; PULSE 53; O2SAT 98
--- NOTE | 2020-04-11 13:02 | PC.NURSE ---
Pt to rad.
[2020-04-11 14:06] LABS: Chloride 103 mmol/L (98-107); Sodium 141 mmol/L (136-145)
[2020-04-11 14:07] LABS: Basophils % 0.4 % (0.1-2.0); Eosinophils # 0.1 K/mm3 (0.0-0.4); Hematocrit 41.7 % (37.0-47.0); Hemoglobin 14.6 g/dL (12.2-16.2); Lymphocytes # 2.7 K/mm3 (0.7-4.5); Lymphocytes % 25.2 % (10-50); Mean Corpuscular HGB Conc 34.9 g/dL (31.8-35.4); Mean Corpuscular Hemoglobin 31.4 pg (27.0-31.2); Mean Corpuscular Volume 89.8 fl (81-99); Mean Platelet Volume 7.5 fl (7.4-10.4); Monocytes # 0.4 K/mm3 (0.1-1.0); Monocytes % 4.2 % (1.7-9.3); Neutrophils # 7.3 K/mm3 (1.8-7.8); Neutrophils % 69.2 % (37.0-80.0); Platelet Count 292 K/mm3 (142-424); Potassium 4.2 mmoL/L (3.5-5.1); Red Blood Count 4.65 M/mm3 (4.20-5.40); Red Cell Distribution Width 12.7 % (11.5-17.5); White Blood Count 10.5 K/mm3 (4.8-10.8)
[2020-04-11 14:09] LABS: Alanine Aminotransferase 66 U/L (12-78); Alkaline Phosphatase 54 U/L (38-126); Anion Gap 15.2 mEq/L (5-15); Aspartate Amino Transferase 49 U/L (14-36); Bilirubin,Total 0.5 mg/dl (0.2-1.3); Blood Urea Nitrogen 9 mg/dl (7-17); Carbon Dioxide 27 mmol/L (22.0-30.0); Creatinine Clearance Estimated 141 mL/min (50-200); Estimated Glomerular Filt Rate 98 ml/min (>60); GFR (African American) 119 ML/MIN (>60)
[2020-04-11 14:10] LABS: Albumin Level 4.7 g/dl (3.5-5.0); Albumin/Globulin Ratio 1.3 (1.1-1.8); Calcium 9.6 mg/dl (8.4-10.2); Globulin 3.5 g/dL (1.3-3.2); Glucose 95 mg/dl (74-100); Total Protein,Serum 8.2 g/dl (6.3-8.2)
[2020-04-11 14:15] LABS: HCG Qualitative, Serum Negative (Negative)
[2020-04-11 17:30] VITALS: BP 113/54; PULSE 65; RESP 16; TEMP 36.6; O2SAT 98
== END 2020-04-11 17:30 | disposition left against medical advice (07) ==
PROVIDERS: Emergency Provider Emergency Medicine; PCP Family Medicine
DX: Z53.21 Procedure and treatment not carried out due to patient leaving prior to being seen by health care provider (principal)
CPT/HCPCS: 71046; 80053; 84703; 85025; 99211

== ENCOUNTER → 2020-08-13 11:25 | Outpatient (CLI) | payer OTHER, SELFPAY ==
[2020-08-14 10:42] LABS: Covid-19 Nasal PCR Sendout Lex Not Detected
== END ==
PROVIDERS: PCP Family Medicine; Visit Provider Family Medicine
DX: Z03.818 Encounter for observation for suspected exposure to other biological agents ruled out (principal)
CPT/HCPCS: U0004

== ENCOUNTER → 2021-03-23 09:29 | Outpatient (CLI) | payer OTHER, SELFPAY ==
--- NOTE | 2021-03-23 09:36 | US_ITS ---
PROCEDURE: US LIVER CLINICAL INDICATION: ELEVATED LIVER ENZYMES,HEPATITIS C COMPARISON: No exams were available for comparison FINDINGS: PANCREAS: Pancreas is not well delineated due to overlying bowel gas. CT or MRI without and with contrast with pancreatic protocol may provide further evaluation if clinically desired. LIVER: No focal liver lesions demonstrated. Homogeneous echogenicity. No intrahepatic biliary ductal dilatation evident. There is appropriate direction of blood flow within a non dilated portal vein RIGHT KIDNEY: Unremarkable. Normal size and echogenicity. No hydronephrosis GALLBLADDER: No gallstones, gallbladder wall thickening, pericholecystic fluid, or biliary dilatation. IMPRESSION: Poor pancreatic delineation. Otherwise negative right upper quadrant ultrasound Dictated by: Kodak Magaña MD 03/23/2021 15:14 Kodak Magaña MD in [facility] 03/23/2021 15:14
== END ==
PROVIDERS: PCP Family Medicine; Visit Provider Nurse Practitioner Family
DX: R74.8 Abnormal levels of other serum enzymes (principal); B17.10 Acute hepatitis C without hepatic coma
CPT/HCPCS: 76705

== ENCOUNTER 2021-04-13 19:17 | Emergency (ER) | payer OTHER, SELFPAY ==
[2021-04-13 19:24] VITALS: BP 119/59; PULSE 85; RESP 17; TEMP 37.6; O2SAT 100; BMI 21.2
[2021-04-13 19:29] LABS: Microscopic, Urine URINE MICROSCOPIC (MICROSCOPIC)
--- NOTE | 2021-04-13 19:30 | CT_ITS ---
PROCEDURE INFORMATION: Exam: CT Abdomen And Pelvis With Contrast Exam date and time: 04/13/2021 7:30 PM Age: 30 years old Clinical indication: Abdominal pain; Localized; Left lower quadrant (llq); Prior surgery; Surgery date: 6+ months; Surgery type: 3 c sections; Additional info: Left side abd pain TECHNIQUE: Imaging protocol: Computed tomography of the abdomen and pelvis with contrast. Radiation optimization: All CT scans at this facility use at least one of these dose optimization techniques: automated exposure control; mA and/or kV adjustment per patient size (includes targeted exams where dose is matched to clinical indication); or iterative reconstruction. Contrast material: ISOVUE; Contrast volume: 75 ml; Contrast route: IV; COMPARISON: DX KUB XR KUB 01/02/2018 3:51 PM FINDINGS: Lungs: There are hypoventalitory changes at the lung bases. Liver: Mild periportal edema. Gallbladder and bile ducts: Moderately distended gallbladder without radiodense stone. Pancreas: Normal enhancement. No ductal dilation. Spleen: No splenomegaly. Adrenal glands: No mass. Kidneys and ureters: No hydronephrosis. Stomach and bowel: No obstruction. No mucosal thickening. Appendix: No evidence of appendicitis. Intraperitoneal space: Trace free fluid within the pelvis. Vasculature: No abdominal aortic aneurysm. Lymph nodes: No enlarged lymph nodes. Urinary bladder: Urinary bladder wall appears thickened measuring 9 mm anteriorly. Reproductive: Tampon within the vagina. Bones/joints: Spondylosis at L5-S1. No acute fracture. Soft tissues: No soft tissue swelling. IMPRESSION: Urinary bladder wall thickening which may in part be secondary to underdistention however can be seen with cystitis. Mucosal mass cannot be radiographically excluded. Correlation with UA is recommended.
[2021-04-13 19:31] LABS: Appearance,Urine SL CLOUDY (Clear); Blood, Urine 2+ (Negative); Color,Urine DK YELLOW (Yellow); Glucose,Urine (UA) Negative (Negative); Ketones,Urine Negative (Negative); Leukocyte Esterase,Urine 1+ (Negative); Nitrate,Urine POSITIVE (Negative); Protein,Urine 1+ (Negative); Urobilinogen,Urine 0.2 EU/dl (0.2)
[2021-04-13 19:37] LABS: Bilirubin,Urine 1+ (Negative)
[2021-04-13 19:48] LABS: Bacteria,Urine 2+ /lpf; WBC,Urine 20-50 #/hpf (0-3)
--- NOTE | 2021-04-13 20:07 | HMH.EDNVD ---
ED Disposition Clinical Impression: UTI (urinary tract infection) Qualifiers: Urinary tract infection type: site unspecified Hematuria presence: without hematuria Qualified Code(s): N39.0 - Urinary tract infection, site not specified Disposition: Home, Self-Care Condition on Discharge: Good Instructions: DI for Urinary Tract Infection (UTI) Additional Instructions: use meds and fluids and call pcp for follow up and urine culture results Prescriptions: levoFLOXacin [Levaquin 500mg tab] 500 mg PO DAILY #7 tab Transmission Status: Pending to [facility] Referrals: Luis Casey MD [Primary Care Provider] - - Critical Care Critical Care Time: No Attestation: On 04/13/21, the high probability of a clinically significant, sudden or life threatening deterioration of the following system(s) required my full and direct attention, intervention and personal management. The time I documented below is in addition to time spent performing reported procedures but includes the following listed in this critical care notation. Medical Decision Making - Medical Records Medical records reviewed: Yes: I reviewed the patient's medical records. - Chandan Inquiry Pt receiving controlled substance: No Vital Signs: 04/13/21 19:24 Temperature 99.6 F Temperature Source Oral Pulse Rate [Right Brachial] 85 Respiratory Rate 17 Blood Pressure [Right Arm] 119/59 L Blood Pressure Mean [Right Arm] 79 Blood Pressure Source [Right Arm] Automatic Cuff Blood Pressure Position [Right Arm] Sitting 02 Sat by Pulse Oximetry 100 Oxygen Delivery Method Room Air - Lab Data Lab results reviewed: Yes: I reviewed the patient's lab results. Lab Results 04/13/21 19:28: Urine Color Dk yellow, Urine Appearance Sl cloudy, Urine pH 6.0, Ur Specific [place] 1.020, Urine Protein 1+, Urine Glucose (UA) Negative, Urine Ketones Negative, Urine Blood 2+, Urine Nitrate Positive, Urine Bilirubin 1+ A, Urine Urobilinogen 0.2, Ur Leukocyte Esterase 1+ A, Urine RBC 10-20, Urine WBC 20-50, Ur Squamous Epith Cells 3-5, Urine Bacteria 2+ 04/13/21 19:55: WBC 12.0 H, RBC 4.25, Hgb 12.6, Hct 36.3 L, MCV 85.2, MCH 29.7, MCHC 34.9, RDW 12.6, Plt Count 257, MPV 8.0, Neut % (Auto) 66.4, Lymph % (Auto) 26.0, [place] % (Auto) 6.2, Eos % (Auto) 0.8, Baso % (Auto) 0.5, Neut # (Auto) 8.0 H, Lymph # (Auto) 3.1, [place] # (Auto) 0.8, Eos # (Auto) 0.1, Baso # (Auto) 0.1 04/13/21 19:55: Sodium 139, Potassium 3.5, Chloride 105, Carbon Dioxide 23, Anion Gap 14.5, BUN 7, Creatinine 0.70, Estimated Creat Clear 100, Estimated GFR 98, Est GFR ( Amer) 118, Glucose 79, Calcium 9.1, Total Bilirubin 0.8, AST 34, ALT 34, Alkaline Phosphatase 62, Total Protein 7.9, Albumin 4.7, Globulin 3.2, Albumin/Globulin Ratio 1.5, Lipase 25 04/13/21 19:55: Serum HCG, Qual Negative 04/13/21 19:55: Lactate 0.7 04/13/21 19:55: C-Reactive Protein 9.5 H, Amylase 45, Procalcitonin < 0.030, TSH 0.27 L, Thyroxine (T4) 11.1 H 04/13/21 19:55: ESR 22 H Result diagrams: 04/13/21 19:55 04/13/21 19:55 Orders (Tests/Meds): ED MEDICATIONS Generic Name Dose Route Start Last Admin Trade Name Freq PRN Reason Stop Dose Admin Sodium Chloride 1,000 mls @ 999 mls/hr 04/13/21 20:15 04/13/21 20:03 Sod Chlor 0.9% 1000ml Bag IV 04/13/21 21:15 999 mls/hr .Q1H1M SHEN Administration Discontinued Medications Generic Name Dose Route Start Last Admin Trade Name Freq PRN Reason Stop Dose Admin Ceftriaxone Sodium 1 gm/ 50 mls @ 100 mls/hr 04/13/21 20:37 04/13/21 20:43 Sodium Chloride IV 04/13/21 21:06 100 mls/hr ONCE ONE Administration Protocol Iopamidol 75 ml 04/13/21 20:47 04/13/21 20:48 Iopamidol-370 (76%);100ml Bottle IV 04/13/21 20:48 75 ml ONCE ONE Administration Sodium Chloride 10 ml 04/13/21 20:47 04/13/21 20:48 Sodium Chloride 0.9% 10ml Syr (Rad Only) IV 04/13/21 20:48 10 ml ONCE ONE Administration ORDERS Category Date Time Status Blood Cultu
[2021-04-13 20:18] LABS: Basophils # 0.1 K/mm3 (0-0.2); Basophils % 0.5 % (0.1-2.0); Eosinophils # 0.1 K/mm3 (0.0-0.4); Eosinophils % 0.8 % (0.1-12.0); Hematocrit 36.3 % (37.0-47.0); Hemoglobin 12.6 g/dL (12.2-16.2); Lymphocytes # 3.1 K/mm3 (0.7-4.5); Mean Corpuscular HGB Conc 34.9 g/dL (31.8-35.4); Mean Corpuscular Hemoglobin 29.7 pg (27.0-31.2); Mean Corpuscular Volume 85.2 fl (81-99); Monocytes # 0.8 K/mm3 (0.1-1.0); Monocytes % 6.2 % (1.7-9.3); Neutrophils % 66.4 % (37.0-80.0); Platelet Count 257 K/mm3 (142-424); Red Blood Count 4.25 M/mm3 (4.20-5.40); Red Cell Distribution Width 12.6 % (11.5-17.5)
[2021-04-13 20:23] LABS: HCG Qualitative, Serum Negative (Negative)
[2021-04-13 20:24] LABS: Amylase 45 U/L (30-110)
[2021-04-13 20:25] LABS: Lactic Acid 0.7 mmol/L (0.7-2.1)
[2021-04-13 20:29] LABS: C-Reactive Protein 9.5 mg/L (0-4)
[2021-04-13 20:31] LABS: Alanine Aminotransferase 34 U/L (12-78); Albumin Level 4.7 g/dl (3.5-5.0); Albumin/Globulin Ratio 1.5 (1.1-1.8); Alkaline Phosphatase 62 U/L (38-126); Anion Gap 14.5 mEq/L (5-15); Aspartate Amino Transferase 34 U/L (14-36); Bilirubin,Total 0.8 mg/dl (0.2-1.3); Blood Urea Nitrogen 7 mg/dl (7-17); Calcium 9.1 mg/dl (8.4-10.2); Carbon Dioxide 23 mmol/L (22.0-30.0); Chloride 105 mmol/L (98-107); Creatinine Clearance Estimated 100 mL/min (50-200); Estimated Glomerular Filt Rate 98 ml/min (>60); GFR (African American) 118 ML/MIN (>60); Globulin 3.2 g/dL (1.3-3.2); Glucose 79 mg/dl (74-100); Lipase 25 U/L (23-300); Potassium 3.5 mmoL/L (3.5-5.1); Sodium 139 mmol/L (136-145); Total Protein,Serum 7.9 g/dl (6.3-8.2)
[2021-04-13 20:43] LABS: T4 (Thyroxine) 11.1 ug/dl (5.53-11.0)
[2021-04-13 20:57] LABS: Thyroid Stimulating Hormone 0.27 uIU/mL (0.465-4.68)
[2021-04-13 21:05] LABS: Erythrocyte Sedimentation Rate 22 mm/hr (0-20)
[2021-04-13 21:26] LABS: Procalcitonin < 0.030 ng/mL (0.0-2.0)
[2021-04-13 21:56] VITALS: BP 127/54; PULSE 80; RESP 16; TEMP 36.8; O2SAT 98
== END 2021-04-13 22:02 | disposition home or self-care (01) ==
PROVIDERS: Emergency Medicine; Emergency Provider Emergency Medicine; PCP Family Medicine
DX: N30.00 Acute cystitis without hematuria (principal); R00.2 Palpitations; F17.210 Nicotine dependence, cigarettes, uncomplicated; Z88.0 Allergy status to penicillin
CPT/HCPCS: 74177; 80053; 81001; 82150; 83605; 83690; 84145; 84436; 84443; 84703; 85025; 85651; 86140; 87040; 87086; 87088; 87186; 96365; 96375; 99284; Q9967

== ENCOUNTER 2021-08-02 10:38 | Emergency (ER) | payer OTHER, SELFPAY ==
[2021-08-02 12:05] VITALS: BP 110/47; PULSE 58; RESP 22; TEMP 36.9; O2SAT 98; BMI 24.4
--- NOTE | 2021-08-02 13:02 | HMH.EDUTC ---
[facility] [place] Clinical Impression: Vomiting and diarrhea Disposition: Home, Self-Care Condition on Discharge: Good Instructions: Viral Gastroenteritis, DI for Viral Gastroenteritis -- Adult Additional Instructions: Drink extra fluids with and between meals. If you have difficulty drinking, try very small amounts of water or suck on ice chips. ? Avoid fruit juices, as these do not replace minerals and can actually increase diarrhea. ? Children and adults can use sports drinks to replenish electrolytes. Younger children and infants should use products formulated for children, like oral rehydration solutions. ? Eat food in small amounts and let your stomach recover. ? Get lots of rest. You may feel tired or weak. ? No greasy or fried foods for the next 24-48 hours BRAT diet Bananas Rice Apples and [place] ? Make sure to drink plenty of liquids ? Return if needed ? Straight to ER if any life threatening symptoms ? Zofran as prescribed ? Follow up with family doctor in the next 48-72 hours if no improvement or any worsening of symptoms Prescriptions: Ondansetron [Zofran 4mg ODT] 4 mg PO TIDP PRN #10 tab PRN Reason: Vomiting Transmission Status: Received by [facility] Referrals: Luis Casey MD [Primary Care Provider] - As needed Forms: Work/School Release Time of Disposition: 13:29 Medical Decision Making - Chandan Inquiry Pt receiving controlled substance: No Chandan was queried for this patient: No Vital Signs: 08/02/21 12:05 08/02/21 13:25 Temperature 98.4 F 98.4 F Temperature Source Oral Pulse Rate 58 L Pulse Rate [Right Brachial] 58 L Respiratory Rate 22 22 Blood Pressure 110/47 L Blood Pressure [Right Arm] 110/47 L Blood Pressure Mean [Right Arm] 68 Blood Pressure Source [Right Arm] Automatic Cuff Blood Pressure Position [Right Arm] Sitting 02 Sat by Pulse Oximetry 98 Oxygen Delivery Method Room Air - Lab Data Lab results reviewed: Yes: I reviewed the patient's lab results. Lab Results 08/02/21 13:02: Urine Color Yellow, Urine Appearance Clear, Urine pH 8.5, Ur Specific [place] 1.020, Urine Protein 1+, Urine Glucose (UA) Negative, Urine Ketones Negative, Urine Blood 2+, Urine Nitrate Negative, Urine Bilirubin Negative, Urine Urobilinogen 0.2, Ur Leukocyte Esterase Negative, Tst Clinic Negative [facility] [place] - General Stated complaint: vomiting, diarrhea, congestion Time Seen by Provider: 08/02/21 13:03 Mode of Arrival: Ambulatory Source of Information: Patient Limitations: No Limitations Description of Symptoms (Recalled from Triage Doc. by RN): PATIENT C/O VOMITING, DIARRHEA, AND LOWER BACK PAIN THAT STARTED TODAY HEENT Symptoms (Recalled from RN notes): No Resp Symptoms (Recalled from RN notes): No Skin Symptoms (Recalled from RN notes): No MS Symptoms (Recalled from RN notes): No Functional Status (Recalled from RN notes): WNL - History of Present Illness Provider Complaint: Patient states that she has been having some nausea, vomiting and diarrhea State that she took home pregancy test and is currently on her period and it was negative States that she also has been having achy like feeling in her lower back and recently had a UTI and wanted to have her urine checked to make sure she doesnt still have UTI - Related Data Home Medications Medication Instructions Recorded Confirmed buprenorphine HCl 8 mg sublingual 8 mg SUBLINGUAL BID 16 Days #16 tab 12/27/18 08/02/21 tablet Previous Rx's Medication Instructions Recorded Ondansetron [Zofran 4mg ODT] 4 mg PO TIDP PRN #10 tab 08/02/21 Allergies Allergy/AdvReac Type Severity Reaction Status Date / Time amoxicillin [From AMOXIL] Allergy Intermediate I-RASH Verified 06/30/20 10:31 Penicillins [PENICILLINS] Allergy Intermediate I-RASH Verified 06/30/20 10:31 - Worker's Comp Is this a Worker's Comp case?: No [facility] History - Hepatitis A Screen Drug use history?: No High risk se
[2021-08-02 13:11] LABS: Apearance,Urine Clear (Clear); Color,Urine Yellow (Yellow); Glucose,Urine (UA) Negative (Negative); PH,Urine 8.5 (5.0-8.5); Protein,Urine 1+ (Negative)
[2021-08-02 13:12] LABS: Bilirubin,Urine Negative (Negative); Blood, Urine 2+ (Negative); Ketones,Urine Negative (Negative); UTC Leukocyte Esterase,Urine Negative (Negative); UTC Nitrate,Urine Negative (Negative); UTC Pregnancy Test, Urine Negative (Negative); Urobilinogen,Urine 0.2 EU/dl (0.2)
[2021-08-02 13:25] VITALS: BP 110/47; PULSE 58; RESP 22; TEMP 36.9; O2SAT 98
== END 2021-08-02 13:38 | disposition home or self-care (01) ==
PROVIDERS: Emergency Provider Nurse Practitioner; PCP Family Medicine
DX: R11.10 Vomiting, unspecified (principal); R19.7 Diarrhea, unspecified; M54.50 Low back pain, unspecified
CPT/HCPCS: 81003; 81025; 99202; G0463

== ENCOUNTER 2021-09-15 16:11 | Emergency (ER) | payer OTHER, SELFPAY ==
[2021-09-15 16:45] VITALS: BP 125/88; PULSE 84; RESP 18; TEMP 36.8; O2SAT 99; BMI 24.4
--- NOTE | 2021-09-15 17:38 | HMH.EDUTC ---
[facility] [place] Disposition Clinical Impression: Conjunctivitis Qualifiers: Conjunctivitis type: unspecified Laterality: left Qualified Code(s): H10.9 - Unspecified conjunctivitis Disposition: Home, Self-Care Condition on Discharge: Good Instructions: Conjunctivitis, DI for Conjunctivitis, Polymyxin B and Trimethoprim Ophthalmic Additional Instructions: Make sure to wash hands before and after applying eye drops to left eye Warm compress may help with pain Clean eye well with warm water and baby shampoo this will help to removed matting Use drops as prescribed Follow up with Family Doctor or eye doctor if no improvement or any worsening of symptoms Prescriptions: Polymyxin B Sulf/Trimethoprim [Polytrim Eye Drops] 2 drops EYE-LEFT Q6H 7 Days #10 ml Transmission Status: Received by [facility] Referrals: Luis Casey MD [Primary Care Provider] - Forms: Work/School Release Time of Disposition: 17:43 Medical Decision Making - Chandan Inquiry Pt receiving controlled substance: No Chandan was queried for this patient: No Vital Signs: 09/15/21 16:45 09/15/21 17:43 Temperature 98.3 F 98.3 F Temperature Source Oral Pulse Rate 84 Pulse Rate [Left Brachial] 84 Respiratory Rate 18 18 Blood Pressure 125/88 Blood Pressure [Right Arm] 125/88 Blood Pressure Mean [Right Arm] 100 Blood Pressure Source [Right Arm] Automatic Cuff Blood Pressure Position [Right Arm] Sitting 02 Sat by Pulse Oximetry 99 Oxygen Delivery Method Room Air [facility] [place] HPI - General Stated complaint: poss pink eye, L eye Time Seen by Provider: 09/15/21 17:38 Mode of Arrival: Ambulatory Source of Information: Patient Limitations: No Limitations Description of Symptoms (Recalled from Triage Doc. by RN): PATIENT C/O POSSIBLE PINK EYE TO LEFT EYE SINCE THIS MORNING HEENT Symptoms (Recalled from RN notes): Yes Resp Symptoms (Recalled from RN notes): No Skin Symptoms (Recalled from RN notes): No MS Symptoms (Recalled from RN notes): No Functional Status (Recalled from RN notes): WNL - History of Present Illness Provider Complaint: Patient states that she woke up this morning with her left eye matted together and she had to use soap and water to get it open States that as the day went on she continued to have Drainage State that she bought over the counter pink eye medication and it helped a little but tonight it was still draining and looked red so she came in - Related Data Home Medications Medication Instructions Recorded Confirmed buprenorphine HCl 8 mg sublingual 8 mg SUBLINGUAL BID 16 Days #16 tab 12/27/18 08/02/21 tablet Previous Rx's Medication Instructions Recorded Ondansetron [Zofran 4mg ODT] 4 mg PO TIDP PRN #10 tab 08/02/21 Polymyxin B Sulf/Trimethoprim 2 drops EYE-LEFT Q6H 7 Days #10 ml 09/15/21 [Polytrim Eye Drops] Allergies Allergy/AdvReac Type Severity Reaction Status Date / Time amoxicillin [From AMOXIL] Allergy Intermediate I-RASH Verified 06/30/20 10:31 Penicillins [PENICILLINS] Allergy Intermediate I-RASH Verified 06/30/20 10:31 - Worker's Comp Is this a Worker's Comp case?: No [facility] History - Hepatitis A Screen Drug use history?: No High risk sexual behaviors?: No History of sexually transmitted infection?: No Currently employed?: No Childcare worker?: No Do you have indoor plumbing?: Yes Do you have electricity?: Yes Attestation statement:: This patient has been screened for Hepatitis A risk factors. Medical History: Reports:: Hepatitis, Palpitations Denies:: Cancer, Diabetes Mellitus Type 1, Diabetes Mellitus Type 2, MRSA Other Medical History: Reports: Other Comment: HEP C Laterality Cases: Bilateral: Tonsillectomy Other Surgeries: Yes: Amputation: No Fractures: No - Social History Smoking Status: Current every day smoker Tobacco Type: cigarettes # Packs/Day (cigarettes): 1 Alcohol Intake: never Substance Use Type: former substance user, heroin, IV drugs O
[2021-09-15 17:43] VITALS: BP 125/88; PULSE 84; RESP 18; TEMP 36.8; O2SAT 99
== END 2021-09-15 17:48 | disposition home or self-care (01) ==
PROVIDERS: Emergency Provider Nurse Practitioner; PCP Family Medicine
DX: H10.32 Unspecified acute conjunctivitis, left eye (principal); F17.210 Nicotine dependence, cigarettes, uncomplicated
CPT/HCPCS: 99202; G0463

== ENCOUNTER → 2021-11-11 13:13 | Outpatient (CLI) | payer OTHER, SELFPAY ==
[2021-11-11 14:16] LABS: Basophils # 0.1 K/mm3 (0-0.2); Eosinophils # 0.2 K/mm3 (0.0-0.4); Eosinophils % 3.3 % (0.1-12.0); Hematocrit 43.4 % (37.0-47.0); Hemoglobin 14.9 g/dL (12.2-16.2); Lymphocytes # 2.8 K/mm3 (0.7-4.5); Lymphocytes % 42.3 % (10-50); Mean Corpuscular HGB Conc 34.4 g/dL (31.8-35.4); Mean Corpuscular Hemoglobin 30.7 pg (27.0-31.2); Mean Corpuscular Volume 89.5 fl (81-99); Mean Platelet Volume 7.6 fl (7.4-10.4); Monocytes # 0.4 K/mm3 (0.1-1.0); Monocytes % 5.5 % (1.7-9.3); Neutrophils # 3.2 K/mm3 (1.8-7.8); Neutrophils % 47.8 % (37.0-80.0); Platelet Count 306 K/mm3 (142-424); Red Blood Count 4.85 M/mm3 (4.20-5.40); Red Cell Distribution Width 12.4 % (11.5-17.5); White Blood Count 6.6 K/mm3 (4.8-10.8)
[2021-11-11 15:27] LABS: Alanine Aminotransferase 42 U/L (12-78); Albumin Level 4.7 g/dl (3.5-5.0); Alkaline Phosphatase 41 U/L (38-126); Anion Gap 10.7 mEq/L (5-15); Aspartate Amino Transferase 51 U/L (14-36); Bilirubin,Direct 0.2 mg/dl (0.0-0.4); Bilirubin,Indirect 0.2 mg/dL (0.0-0.9); Bilirubin,Total 0.4 mg/dl (0.2-1.3); Bilirubin,Unconjugated 0.2 mg/dL (0.0-1.1); Blood Urea Nitrogen 8 mg/dl (7-17); Calcium 9.4 mg/dl (8.4-10.2); Carbon Dioxide 28 mmol/L (22.0-30.0); Chloride 103 mmol/L (98-107); Estimated Glomerular Filt Rate 117 ml/min (>60); GFR (African American) 141 ML/MIN (>60); Glucose 78 mg/dl (74-100); Potassium 4.7 mmoL/L (3.5-5.1); Sodium 137 mmol/L (136-145); Total Protein,Serum 7.5 g/dl (6.3-8.2)
[2021-11-13 11:03] LABS: HIV Screen 4th Generation wRfx Non Reactive (Non Reactive)
[2021-11-13 12:10] LABS: Hep A Ab, Total Positive (Negative); Hepatitis B Core Antibody IgM Negative (Negative); Hepatitis B Surface Antigen Negative (Negative); Hepatitis C Antibody >11.0 s/co ratio (0.0-0.9)
[2021-11-13 15:11] LABS: Hep B Surface Ab, Qual Reactive (.)
[2021-11-14 14:31] LABS: QuantiFERON-TB Gold Plus Negative (Negative)
== END ==
PROVIDERS: Visit Provider Nurse Practitioner Family
DX: F11.20 Opioid dependence, uncomplicated (principal); F12.20 Cannabis dependence, uncomplicated; F17.200 Nicotine dependence, unspecified, uncomplicated; B18.2 Chronic viral hepatitis C
CPT/HCPCS: 36415; 80048; 80076; 85025; 86480; 86703; 86704; 86706; 86708; 87340; 87380; G0432

== ENCOUNTER → 2022-10-05 11:30 | Outpatient (CLI) | payer OTHER, SELFPAY ==
[2022-10-05 15:31] LABS: Basophils # 0.1 K/mm3 (0-0.2); Basophils % 1.2 % (0.1-2.0); Eosinophils # 0.3 K/mm3 (0.0-0.4); Eosinophils % 4.6 % (0.1-12.0); Hematocrit 43.5 % (37.0-47.0); Hemoglobin 13.8 g/dL (12.2-16.2); Lymphocytes # 2.4 K/mm3 (0.7-4.5); Lymphocytes % 42.2 % (10-50); Mean Corpuscular HGB Conc 31.7 g/dL (31.8-35.4); Mean Corpuscular Volume 94.6 fl (81-99); Mean Platelet Volume 9.2 fl (7.4-10.4); Monocytes # 0.5 K/mm3 (0.1-1.0); Monocytes % 9.1 % (1.7-9.3); Neutrophils # 2.5 K/mm3 (1.8-7.8); Neutrophils % 42.9 % (37.0-80.0); Platelet Count 395 K/mm3 (142-424); Red Cell Distribution Width 12.9 % (11.5-17.5); White Blood Count 5.8 K/mm3 (4.8-10.8)
[2022-10-05 15:44] LABS: Alanine Aminotransferase 30 U/L (12-78); Albumin Level 4.8 g/dl (3.5-5.0); Albumin/Globulin Ratio 1.5 (1.1-1.8); Alkaline Phosphatase 50 U/L (38-126); Aspartate Amino Transferase 37 U/L (14-36); Bilirubin,Total 0.6 mg/dl (0.2-1.3); Blood Urea Nitrogen 8 mg/dl (7-17); Calcium 9.2 mg/dl (8.4-10.2); Carbon Dioxide 27 mmol/L (22.0-30.0); Chloride 108 mmol/L (98-107); Chol/HDL Ratio 5.3 (1-3.5); Cholesterol 190 mg/dl (140-200); Estimated Glomerular Filt Rate 83 ml/min (>60); GFR (African American) 101 ML/MIN (>60); Globulin 3.2 g/dL (1.3-3.2); Glucose 78 mg/dl (74-100); HDL Cholesterol 36 mg/dl (40-60); Sodium 142 mmol/L (136-145); Triglycerides 131 mg/dl (30-150); VLDL Cholesterol 26 mg/dL (0-40)
[2022-10-05 16:03] LABS: 25-OH Vitamin D, Total 22.7 ng/mL (30-100); Free T4 (Free Thyroxine) 1.02 ng/dl (0.78-2.19)
[2022-10-05 16:15] LABS: Thyroid Stimulating Hormone 0.46 uIU/mL (0.465-4.68)
[2022-10-10 00:05] LABS: HCV Genotype Charge YES; Hepatitis C Genotype 3 (.)
[2022-10-11 21:18] LABS: Hep A Ab, IgM NEGATIVE
[2022-10-11 21:19] LABS: Hepatitis B Core Antibody IgM NEGATIVE; Hepatitis B Surface Antigen NEGATIVE; Hepatitis C Antibody >11.0
== END ==
PROVIDERS: PCP Emergency Medicine; Visit Provider Emergency Medicine
DX: R06.00 Dyspnea, unspecified (principal); R76.8 Other specified abnormal immunological findings in serum; E55.9 Vitamin D deficiency, unspecified; Z79.899 Other long term (current) drug therapy
CPT/HCPCS: 80053; 80061; 80074; 82306; 84439; 84443; 85025; 87522; 87902

== ENCOUNTER → 2022-10-14 09:54 | Outpatient (CLI) | payer OTHER, SELFPAY ==
[2022-10-14 10:53] LABS: Basophils # 0.1 K/mm3 (0-0.2); Basophils % 1.6 % (0.1-2.0); Eosinophils # 0.2 K/mm3 (0.0-0.4); Eosinophils % 3.6 % (0.1-12.0); Hematocrit 42.7 % (37.0-47.0); Hemoglobin 14.1 g/dL (12.2-16.2); Lymphocytes # 2.4 K/mm3 (0.7-4.5); Lymphocytes % 37.1 % (10-50); Mean Corpuscular HGB Conc 32.9 g/dL (31.8-35.4); Mean Corpuscular Hemoglobin 30.1 pg (27.0-31.2); Mean Corpuscular Volume 91.5 fl (81-99); Mean Platelet Volume 8.6 fl (7.4-10.4); Monocytes # 0.4 K/mm3 (0.1-1.0); Monocytes % 6.7 % (1.7-9.3); Neutrophils # 3.3 K/mm3 (1.8-7.8); Platelet Count 308 K/mm3 (142-424); Red Blood Count 4.66 M/mm3 (4.20-5.40); Red Cell Distribution Width 12.8 % (11.5-17.5); White Blood Count 6.5 K/mm3 (4.8-10.8)
[2022-10-14 11:52] LABS: Chloride 109 mmol/L (98-107); Potassium 4.5 mmoL/L (3.5-5.1); Sodium 139 mmol/L (136-145)
[2022-10-14 11:54] LABS: Blood Urea Nitrogen 9 mg/dl (7-17); Estimated Glomerular Filt Rate 97 ml/min (>60); GFR (African American) 117 ML/MIN (>60)
[2022-10-14 11:55] LABS: Alanine Aminotransferase 30 U/L (12-78); Albumin Level 4.6 g/dl (3.5-5.0); Albumin/Globulin Ratio 1.4 (1.1-1.8); Alkaline Phosphatase 45 U/L (38-126); Anion Gap 11.5 mEq/L (5-15); Aspartate Amino Transferase 35 U/L (14-36); Bilirubin,Total 0.3 mg/dl (0.2-1.3); Calcium 9.3 mg/dl (8.4-10.2); Carbon Dioxide 23 mmol/L (22.0-30.0); Globulin 3.3 g/dL (1.3-3.2); Glucose 94 mg/dl (74-100); Total Protein,Serum 7.9 g/dl (6.3-8.2)
[2022-10-14 12:50] LABS: INR 0.99 (0.9-1.1); Prothrombin Time 10.7 seconds (10.1-12.5)
[2022-10-15 11:32] LABS: HIV Screen 4th Generation wRfx Non Reactive (Non Reactive)
[2022-10-15 17:03] LABS: Hep A Ab, Total Positive (Negative); Hep B Core Ab, Total Negative (Negative); Hep B Surface Ab, Qual Non Reactive (.)
[2022-10-17 20:55] LABS: HCV Genotype Charge YES; Hepatitis C Genotype 3 (.)
[2022-10-18 06:05] LABS: ALT (SGPT) P5P 30 IU/L (0-40); Alpha 2-Macroglobulins, Qn 247 mg/dL (110-276); Apolipoprotein A-1 121 mg/dL (116-209); Bilirubin, Total <0.1 mg/dL (0.0-1.2); Fibrosis Score 0.09 (0.00-0.21); GGT 38 IU/L (0-60); Haptoglobin 114 mg/dL (33-278); Necroinflammat Activity Grade A0-No activity (.); Necroinflammat Activity Score 0.11 (0.00-0.17)
[2022-10-20 03:05] LABS: Hepatitis B Surface Antigen Non Reactive
[2022-10-20 03:09] LABS: Hepatitis C Antibody >11.0
== END ==
PROVIDERS: PCP Emergency Medicine; Visit Provider Nurse Practitioner Family
DX: R76.8 Other specified abnormal immunological findings in serum (principal); R53.83 Other fatigue; Z11.4 Encounter for screening for human immunodeficiency virus [HIV]
CPT/HCPCS: 36415; 80053; 81596; 85025; 85610; 86703; 86704; 86706; 86708; 87340; 87380; 87522; 87902; G0432

== ENCOUNTER → 2023-04-12 12:43 | Outpatient (CLI) | payer OTHER, SELFPAY ==
--- NOTE | 2023-04-12 12:48 | XR_ITS ---
FINAL REPORT CLINICAL HISTORY: left Foot pain, flat foot FINDINGS: AP, oblique and lateral views of the left foot were obtained. There is no prior exam for comparison. There is no acute fracture or dislocation. The joint spaces are preserved. Soft tissues are normal. IMPRESSION: No acute osseous abnormality of the left foot. Reviewed, Interpreted and Dictated by Prerna Woodard MD Transcribed by Fortino Lafleur Authenticated and [facility]
== END ==
PROVIDERS: PCP Emergency Medicine; Visit Provider Podiatrist
DX: M79.672 Pain in left foot (principal)
CPT/HCPCS: 73630

== ENCOUNTER 2023-05-12 13:26 | Emergency (ER) | payer OTHER, SELFPAY ==
[2023-05-12 13:28] VITALS: BP 112/73; PULSE 98; RESP 18; TEMP 37.1; O2SAT 99; BMI 31.1
--- NOTE | 2023-05-12 13:38 | PC.NURSE ---
DR YOUSIF AT BEDSIDE
--- NOTE | 2023-05-12 13:41 | XR_ITS ---
FINAL REPORT CLINICAL HISTORY: dyspnea COMPARISON: 04/11/2020 FINDINGS: SINGLE-VIEW CHEST The heart size is normal. The mediastinum is normal. The lungs are clear. There is no pneumothorax. IMPRESSION: No acute cardiopulmonary process. Reviewed, Interpreted and Dictated by Gera Caal III, MD Transcribed by Ariela Purvis Authenticated and [facility]
--- NOTE | 2023-05-12 13:45 | HMH.EDGENADL ---
Discharge Plan Disposition Patient Disposition: Home, Self-Care Prescriptions Prescriptions: New albuterol sulfate 90 mcg/actuation HFA aerosol inhaler 4 inh inhalation Q4H PRN (Reason: shortness of breath or wheezing) Qty: 8.5 0RF Rx Instructions: 4 puffs every 4 hours for 48 hours then as needed for shortness of breath or wheezing following No Action buprenorphine-naloxone 8-2 mg tablet, sublingual sublingual sofosbuvir-velpatasvir 400-100 mg tablet 1 tab PO DAILY gabapentin 600 mg tablet 600 mg PO TID Qty: 90 2RF trazodone 50 mg tablet 50 mg PO HS Qty: 30 2RF albuterol sulfate [Proventil HFA] 90 mcg/actuation HFA aerosol inhaler 2 puff inhalation Q8H PRN (Reason: shortness of breath or wheezing) Qty: 8.5 2RF budesonide-formoterol [Symbicort] 80-4.5 mcg/actuation HFA aerosol inhaler 1 inh inhalation BID Qty: 10.2 2RF Vraylar 1.5 mg capsule 1.5 mg PO DAILY Qty: 30 1RF cholecalciferol (vitamin D3) 1,250 mcg (50,000 unit) capsule 1,250 mcg PO WEEKLY Qty: 14 3RF Referrals Follow up/Referrals: Oniel Denny MD [Primary Care Provider] - See instructions Activity Restrictions/Add. Instructions Additional Instructions/Restrictions: Please stop smoking as discussed. Take your albuterol inhaler as I have prescribed. Return with any worsening shortness of breath. Your steroids are long-acting you do not need more steroids at this point. No antibiotics are indicated currently your chest x-ray was clear without any focal consolidation suggestive of pneumonia. Return with other concerns. Clinical Impressions Clinical Impression: URI (upper respiratory infection), RAD (reactive airway disease), Encounter for smoking cessation counseling Discharge ED Provider: Britta Moss General Adult HPI General Chief complaint: Upper Respiratory Infection Stated complaint: SOA, cough,fever Time Seen by Provider: 05/12/23 13:29 History of Present Illness HPI narrative: 32-year-old female here with cough and shortness of breath and wheezing. She does not carry a diagnosis of reactive airway disease or COPD but does have an extensive multi decade history of smoking. She had a temperature of around 101 prior to arrival today. She states that she has been around her mother who works in a location where many people been diagnosed with COVID but her mother has not definitively been diagnosed with COVID. She also has some chest wall discomfort with coughing. Related Data Home Medications Medication Instructions Recorded Confirmed buprenorphine 8 mg-naloxone 2 mg tab sublingual 10/05/22 04/12/23 sublingual tablet sofosbuvir 400 mg-velpatasvir 100 1 tab PO DAILY 03/07/23 04/12/23 mg tablet Previous Rx's Medication Instructions Recorded albuterol sulfate 90 mcg/actuation 2 puff inhalation Q8H PRN 12/07/22 aerosol inhaler (Proventil HFA) shortness of breath or wheezing #8.5 grams budesonide-formoterol HFA 80 1 inh inhalation BID #10.2 grams 12/07/22 mcg-4.5 mcg/actuation aerosol inhaler (Symbicort) cariprazine 1.5 mg capsule 1.5 mg PO DAILY #30 caps 12/07/22 (Vraylar) cholecalciferol (vitamin D3) 1,250 1,250 mcg PO WEEKLY #14 caps 12/07/22 mcg (50,000 unit) capsule trazodone 50 mg tablet 50 mg PO HS #30 tabs 12/07/22 gabapentin 600 mg tablet 600 mg PO TID #90 tabs 03/07/23 albuterol sulfate 90 mcg/actuation 4 inh inhalation Q4H PRN shortness 05/12/23 aerosol inhaler of breath or wheezing #8.5 grams Allergies Allergy/AdvReac Type Severity Reaction Status Date / Time amoxicillin [From AMOXIL] Allergy Intermediate I-RASH Verified 04/12/23 13:26 Penicillins [PENICILLINS] Allergy Intermediate I-RASH Verified 04/12/23 13:26 [facility] PFS Disclaimer: The information contained in this section may have been updated after the patient was seen, as this information can be updated by other users. Surgical History (Reviewed 04/12/23 @ 13:51 by Lance Bridges,
--- NOTE | 2023-05-12 13:46 | PC.NURSE ---
XR AT BEDSIDE
[2023-05-12 13:49] LABS: Coronavirus 19, PCR Not Detected (NotDetected); Influenza A, PCR Not Detected (NotDetected); Influenza B, PCR Not Detected (NotDetected)
[2023-05-12 14:00] VITALS: BP 106/65; PULSE 80; O2SAT 100
[2023-05-12 14:30] VITALS: BP 107/55; PULSE 86; RESP 18; TEMP 36.9; O2SAT 95
== END 2023-05-12 14:30 | disposition home or self-care (01) ==
PROVIDERS: Emergency Provider Student in an Organized Health Care Education/Training Program; PCP Emergency Medicine
DX: J06.9 Acute upper respiratory infection, unspecified (principal); J45.909 Unspecified asthma, uncomplicated; F17.210 Nicotine dependence, cigarettes, uncomplicated
CPT/HCPCS: 71045; 87636; 99283

== ENCOUNTER 2023-11-15 19:04 | Outpatient (CLI) | payer OTHER, SELFPAY ==
[2023-11-15 21:30] LABS: Amphetamine/Metha Screen,Urine Negative ng/ml (<1000)
[2023-11-15 21:31] LABS: Barbiturates Screen,Urine Negative ng/ml (<200)
[2023-11-15 21:32] LABS: Benzodiazepines Screen,Urine Negative ng/ml (<200); Cannabinoid Screen,Urine Positive ng/ml (<50)
[2023-11-15 21:33] LABS: Cocaine Screen,Urine Negative ng/ml (<300)
[2023-11-15 21:34] LABS: Opiate Screen,Urine Negative ng/ml (<300)
[2023-11-15 21:35] LABS: Phencyclidine Screen,Urine Negative ng/ml (<25)
[2023-11-15 21:37] LABS: Methadone Screen,Urine Negative ng/ml (<300)
== END 2023-11-15 23:59 ==
LOC: LAB.DROPOF 19:04
PROVIDERS: PCP Family Medicine; Visit Provider Family Medicine
DX: Z79.899 Other long term (current) drug therapy (principal)
CPT/HCPCS: 80307

== ENCOUNTER 2024-08-25 14:00 | Emergency (ER) | payer SELFPAY ==
[2024-08-25 14:00] VITALS: BP 141/85; PULSE 74; RESP 18; O2SAT 100; BMI 34.7
--- NOTE | 2024-08-25 14:02 | ECG_ITS ---
APPROVED REPORT Exam: Resting ECG HR:77 bpm ECG Measurements Heart Rate 77 AXES SC 176 P 59 QRSd 80 QRS 38 QT 364 T 19 QTc 396 Conclusion SINUS RHYTHM WITH SINUS ARRHYTHMIA NONSPECIFIC T-WAVE ABNORMALITY BORDERLINE ECG No STEMI Electronically signed by : AURORA CUETO, 08/27/2024 06:31:51
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
[2024-08-25 14:39] LABS: Urine Pregnancy, HCG Qual. Negative (Negative)
[2024-08-25] MEDS: METHOCARBAMOL 500MG TABLET 1500 MG PO (14:46)
[2024-08-25 15:06] VITALS: BP 134/81; PULSE 79; RESP 18; TEMP 36.7; O2SAT 98
[2024-08-25 18:08] LABS: Coronavirus 19, PCR Not Detected (NotDetected); Influenza A, PCR Not Detected (NotDetected); Influenza B, PCR Not Detected (NotDetected)
--- NOTE | 2024-08-26 11:08 | PC.NURSE ---
pt called for covid results. I relayed she was negative for covid/flu
== END 2024-08-25 15:07 | disposition home or self-care (01) ==
PROVIDERS: Emergency Provider Emergency Medicine; PCP Family Medicine
DX: R07.89 Other chest pain (principal); R07.9 Chest pain, unspecified; M25.552 Pain in left hip
CPT/HCPCS: 71250; 81025; 87636; 93005; 99284

== ENCOUNTER 2025-02-05 13:56 | Emergency (ER) | payer SELFPAY ==
[2025-02-05 14:35] VITALS: BP 132/74; PULSE 68; RESP 16; TEMP 36.7; O2SAT 99; BMI 34.0
--- NOTE | 2025-02-05 14:45 | XR_ITS ---
FINAL REPORT CLINICAL HISTORY: Rt ankle pain and injury FINDINGS: RIGHT ANKLE Three views were obtained. There is no fracture or dislocation. The joint spaces appear normal. No soft tissue abnormality is identified. There is a well-corticated ossific density inferior to the lateral malleolus measuring 5 mm. IMPRESSION: No acute process. Reviewed, Interpreted and Dictated by Antonio Lynn MD Transcribed by Ariela Purvis Authenticated and [facility]
--- NOTE | 2025-02-05 14:47 | XR_ITS ---
FINAL REPORT CLINICAL HISTORY: Right foot injury FINDINGS: RIGHT FOOT Three views were obtained. There is no fracture or dislocation. The joint spaces appear normal. There is mild soft tissue edema over the dorsum of the foot. IMPRESSION: Mild soft tissue edema without acute bony abnormality. Reviewed, Interpreted and Dictated by Antonio Lynn MD Transcribed by Ariela Purvis Authenticated and [facility]
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
[2025-02-05] MEDS: IBUPROFEN 800 MG TABLET PO (14:54)
[2025-02-05 17:11] VITALS: BP 125/67; PULSE 67; RESP 16; TEMP 36.7; O2SAT 99
== END 2025-02-05 17:12 | disposition home or self-care (01) ==
PROVIDERS: Emergency Provider Student in an Organized Health Care Education/Training Program; PCP Family Medicine
DX: S93.401A Sprain of unspecified ligament of right ankle, initial encounter (principal); S93.601A Unspecified sprain of right foot, initial encounter; M79.671 Pain in right foot; X50.1XXA Overexertion from prolonged static or awkward postures, initial encounter
CPT/HCPCS: 73610; 73630; 99284

== ENCOUNTER 2025-06-10 08:14 | Emergency (ER) | payer SELFPAY ==
--- NOTE | 2025-06-10 08:16 | PC.NURSE ---
dr ashley at bedside
[2025-06-10 08:21] VITALS: BP 127/73; PULSE 84; RESP 15; TEMP 36.6; O2SAT 99; BMI 33.6
--- NOTE | 2025-06-10 08:21 | ED_ITS ---
Discharge Plan Disposition Patient Disposition: Home, Self-Care Prescriptions Prescriptions: No Action albuterol sulfate 90 mcg/actuation HFA aerosol inhaler 4 inh inhalation Q4H PRN (Reason: shortness of breath or wheezing) Qty: 8.5 10RF Rx Instructions: 4 puffs every 4 hours for 48 hours then as needed for shortness of breath or wheezing following cholecalciferol (vitamin D3) 1,250 mcg (50,000 unit) capsule 1,250 mcg PO WEEKLY Qty: 14 3RF gabapentin 600 mg tablet 600 mg PO TID Qty: 90 1RF Referrals Follow up/Referrals: Domingo Calvert MD [Primary Care Provider, Family Practice] - See instructions Activity Restrictions/Add. Instructions Additional Instructions/Restrictions: Keep the wound clean by using soap and water frequently. You can keep it wrapped with gauze or Band-Aid while at work. If you develop any signs of infection, such as increased redness, swelling, pus draining from the wound, fever, or if you become concerned for your health for any reason, return to the emergency department for evaluation. The sutures will need to be removed in 10 to 14 days, which can be done at your primary care office, urgent treatment center or emergency department. Clinical Impressions Clinical Impression: Laceration of right palm Instructions Patient Instructions: DI for Laceration Repair Print Language Print Language: Singaporean Discharge ED Provider: Tee Yuen Adult HPI General Chief complaint: Wound/Laceration Stated complaint: Cut right hand with knife Time Seen by Provider: 06/10/25 08:15 History of Present Illness HPI narrative: Pema Nance is a 34-year-old female with no significant past medical history who presents to the emergency department for complaints of a laceration to the palm of her right hand. Patient states that she was trying to open a can with a pocket knife this morning and was having difficulties with that and slammed the knife down, accidentally cutting her right palm. She covered the wound with a shirt that she had lying around. She denies any numbness or tingling. She states that she can move all of her fingers appropriately. She is not sure if it will need stitches or not. She does not know when her last tetanus shot was. Related Data Previous Rx's ?Medication ?Instructions ?Recorded albuterol sulfate 90 mcg/actuation 4 inh inhalation Q4 H PRN shortness 07/03/24 aerosol inhaler of breath or wheezing #8.5 g hosea cholecalciferol (vitamin D3) 1,250 1,250 mcg PO WEEKLY #14 caps 10/30/24 mcg (50,000 unit) capsule gabapentin 600 mg tablet 600 mg PO TID #90 tabs 05/28 Allergies Allergy/AdvReac Type Severity Reaction Status Date / Time amoxicillin (From AMOXIL) Allergy Intermediate I-RASH Verified 01/01/25 11:17 Penicillins (PENICILLINS) Allergy Intermediate I-RASH Verified 01/01/25 11:17 [facility] Disclaimer: The information contained in this section may have been updated after the patient was seen, as this information can be updated by other users. Medical History (Updated 06/10/25 @ 08:46 by Tee Yuen MD) Marijuana smoker Hx of hepatitis C Vaginal odor Skin lesion No significant past medical history Surgical History History of tonsillectomy Hx of section Family History Mother Diabetes Father Cancer Social History Smoking Status: Current every day smoker tobacco type: cigarettes packs per day: 1 second hand exposure: Yes alcohol intake: never substance use type: former substance user, heroin and IV drugs current occupational status: other Travel in the last 8 weeks?: None household members: other housing: other Have you lived/traveled outside US in past 30 days?: No Contact w/someone who lives/traveled outside US past 30 days?: No Exposure to someone with infectious disease in past 14 days?: No Do you have a fever (greater than 100.4 F or 38 C)?: No Have you tested positive for COVID-19?: No Exposed to someone with COVID-19 in past 14 days?: No Do you have a sore throat?: No Do you have a cough?: No Do you have any weakness?: No Do you have any diarrhea?: No Are you experiencing any unusual bleeding?: No Do you have any muscle aches/pain?: No Do you have any abdominal pain?: No Are you experiencing loss of taste or smell?: No Other Medical History Have you received the Flu Vaccine for this season: No Have you received the Pneumonia Vaccine: No ROS Obtained: Yes Systems reviewed as appropriate & no additional complaints except as documented Physical Exam General General appearance: alert and in no apparent distress Head Head exam: atraumatic Eye Eye exam: Present normal appearance ENT ENT exam: Present normal external ear exam Neck Neck exam: Present full ROM Chest Chest inspection: Present symmetric chest wall rise Respiratory Respiratory exam: Present normal lung sounds bilaterally; Absent respiratory distress Cardiovascular Cardiovascular exam: Present regular rate and normal rhythm Abdominal Exam Abdominal exam: Absent distention Extremities Exam Extremities exam: Present normal inspection Expanded Upper Extremity Exam Right: Hand L/R front image: 2 1. laceration (3cm) Back Exam Back exam: Present normal inspection Neurological Exam Neurological exam: Present alert and oriented X3 Psychiatric Psychiatric exam: Present normal affect Skin Skin exam: Present warm and dry Medical Decision Making Medical Records Screening: Per USPSTF and CDC recommendations, given the prevalence of disease in our region, it is our hospital?s policy to screen for HIV and viral Hepatitis for all patients aged 18 and over and those with ongoing risk factors. Chandan Inquiry Pt receiving controlled substance: No Vital Signs: 06/10/25 08:21 Temperature 97.8 F Temperature Source Oral Pulse Rate [Right Radial] 84 Respiratory Rate 15 Blood Pressure [Right Arm] 127/73 Blood Pressure Mean [Right Arm] 91 Blood Pressure Source [Right Arm] Automatic Cuff Blood Pressure Position [Right Arm] Sitting 02 Sat by Pulse Oximetry 99 Oxygen Delivery Method Room Air Orders (Tests/Meds): ED MEDICATIONS Discontinued Medications Generic Name Dose Route Start Last Admin Trade Name Freq PRN Reason Stop Dose Admin Lidocaine HCl 20 ml 06/10/25 08:20 Lidocaine 1% 20ml Mdv IJ 06/10/25 08:21 ONCE ONE Tetanus/Reduced Diphtheria/Acell Pertussis 0.5 ml 06/10/25 08:20 06/10/25 08:34 Tet/Diphth/Pert-Adult 0.5ml Syringe IM 06/10/25 08:21 0.5 ml .ONCE ONE Administration ORDERS Category Date Time Status HIV Combo Stat Lab 06/10/25 08:25 Ordered Hepatitis C Ab Qual. W/ RFX Stat Lab 06/10/25 08:25 Ordered Medical Decision Narrative: Pema Nance is a 34-year-old female with no significant past medical history who presents to the emergency department for complaints of a laceration to the palm of her right hand. Patient states that she was trying to open a can with a pocket knife this morning and was having difficulties with that and slammed the knife down, accidentally cutting her right palm. She covered the wound with a shirt that she had lying around. She denies any numbness or tingling. She states that she can move all of her fingers appropriately. She is not sure if it will need stitches or not. She does not know when her last tetanus shot was. On arrival, patient is hemodynamically stable, no acute distress, breathing comfortably on room air. Patient is alert and oriented. She is sitting upright in bed her stretcher. She has a 3 cm linear laceration over the palm of her right hand. She has full range of motion of all fingers with flexion and extension. Sensation intact throughout. 2+ radial pulse. See physical exam above. There is no active bleeding. Will update patient's tetanus shot. X- rays were considered, however low concern for foreign body or fracture at this time. Will irrigate the wound thoroughly with sterile water and Hibiclens. Patient agreeable to proceed with laceration repair. We used 4-0 nylon sutures and local lidocaine. Patient tolerated this procedure well. See procedure note for details. Patient is appropriate for discharge at this time with instructions to keep the wound clean by using gentle soap and water. Return precautions were given for any evidence of infection. All questions were answered. She demonstrated understanding and was in agreement this plan. She was then discharged from the emergency department in stable condition. Procedures Laceration Laceration 1: Site: hand Size (cm): 3 Description: linear Depth: simple, single layer Local Anesthetic: lidocaine 1% Amount of anesthesia used (mL): 5 Pre-repair: wound explored and irrigated extensively Skin layer closed with: nylon Size (cm): 4-0 Number of sutures: 5 Technique: simple, interrupted Critical Care Critical Care Time Critical Care Time: No
--- NOTE | 2025-06-10 08:21 | PC.NURSE ---
right hand cleansed with hibiclens at sterile water
[2025-06-10] MEDS: TET/DIPHTH/PERT-ADULT 0.5ML SYRINGE 0.5 ML IM (08:34)
[2025-06-10 08:48] VITALS: BP 125/85; PULSE 80; RESP 15; TEMP 36.6; O2SAT 99
[2025-06-10] MEDS: LIDOCAINE 1% 20ML MDV 20 ML IJ (08:48)
== END 2025-06-10 08:49 | disposition home or self-care (01) ==
PROVIDERS: Emergency Provider Student in an Organized Health Care Education/Training Program; PCP Family Medicine
DX: S61.411A Laceration without foreign body of right hand, initial encounter (principal); W26.0XXA Contact with knife, initial encounter
CPT/HCPCS: 12002; 90471; 90715; 99283; J2003

== ENCOUNTER 2025-06-17 13:07 | Emergency (ER) | payer SELFPAY ==
[2025-06-17 13:08] VITALS: PULSE 67; RESP 20; TEMP 36.8; O2SAT 100; BMI 33.0
--- NOTE | 2025-06-17 13:29 | ED_ITS ---
<Statement entered by Armando Delarosa MD - 06/17/25 15:56> I consulted the TU, and we discussed the complexity of the problems being addressed. I approved the treatment and management plan for this patient's care in the emergency department, thus performing a substantial portion of the medical decision making. Mukund Delarosa MD Discharge Plan Disposition Patient Disposition: Home, Self-Care Condition: Good Prescriptions Prescriptions: New cephalexin 500 mg capsule 500 mg PO Q6H 5 Days Qty: 20 0RF No Action albuterol sulfate 90 mcg/actuation HFA aerosol inhaler 4 inh inhalation Q4H PRN (Reason: shortness of breath or wheezing) Qty: 8.5 10RF Rx Instructions: 4 puffs every 4 hours for 48 hours then as needed for shortness of breath or wheezing following cholecalciferol (vitamin D3) 1,250 mcg (50,000 unit) capsule 1,250 mcg PO WEEKLY Qty: 14 3RF gabapentin 600 mg tablet 600 mg PO TID Qty: 90 1RF Referrals Follow up/Referrals: Domingo Calvert MD [Primary Care Provider, Family Practice] - See instructions Activity Restrictions/Add. Instructions Additional Instructions/Restrictions: Please return to the emergency department with any worsening signs or symptoms. Please keep your hand wrapped and utilize good wound care keeping the area clean, take your oral antibiotic as prescribed with food, please utilize [id number] wound cream/gel. Clinical Impressions Clinical Impression: Encounter for removal of sutures, Broken suture Instructions Patient Instructions: How to Care for a Surgical Wound, DI for Wound Dehiscence, DI for Suture Removal Print Language Print Language: Portuguese Discharge ED Provider: Armando Delarosa General Adult HPI General Chief complaint: Wound/Laceration Stated complaint: R Hand Stitches busted open Time Seen by Provider: 06/17/25 13:19 Mode of Arrival: Ambulatory Source of Information: Patient Description of Symptoms (Recalled from ER Triage Doc. by RN): patient presents to the ED for busted sticthes that she has done here in the ED on the . 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 took her bandaid off and noticed the stitches busted open. 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, was reaching to place a tray inside the oven when she felt a pop , and pain in her right hand, patient was seen in the emergency department 06/10/2025, for a laceration to her palmar aspect of her right hand, no tendon involvement, laceration was uncomplicated linear 3 cm, closed with five 4-0 nylon sutures, to my count there are [address], patient tells me that 2 days , after initial laceration repair she lost 2 sutures , patient has any fever chills nausea vomiting, denies any drainage from the wound, has had uncomplicated wound course thus far, other past medical history consistent with hepatitis C positive data deficient, reactive airway disease, neuropathy, initial triage vitals unremarkable. No other acute symptomatology. Please note that above description of symptoms, in this electronic medical record under categorization of recalled from ER triage doctor by RN are reflective of an initial nursing assessment, however, is not reflective of my full history and physical exam that was personally taken and clarified. Consequentially, this preceding description of symptoms, which may include the patient's categorized chief complaint in the EMR, do not reflect my personal clinical impression, and the ultimate description of history of present illness and patient stated complaints should be deferred to this section of the note. Unless stated otherwise or congruent with this section of the note, additional signs, symptoms, or incongruence should be interpreted as inaccurate with my clinical impression. Onset (ago): hour(s) Related Data Previous Rx's ?Medication ?Instructions ?Recorded albuterol sulfate 90 mcg/actuation 4 inh inhalation Q4 H PRN shortness 07/03/24 aerosol inhaler of breath or wheezing #8.5 g hosea cholecalciferol (vitamin D3) 1,250 1,250 mcg PO WEEKLY #14 caps 10/30/24 mcg (50,000 unit) capsule gabapentin 600 mg tablet 600 mg PO TID #90 tabs 05/28 cephalexin 500 mg capsule 500 mg PO Q6H 5 days #20 cap s 06/17/25 Allergies Allergy/AdvReac Type Severity Reaction Status Date / Time amoxicillin (From AMOXIL) Allergy Intermediate I-RASH Verified 01/01/25 11:17 Penicillins (PENICILLINS) Allergy Intermediate I-RASH Verified 01/01/25 11:17 [facility] Disclaimer: The information contained in this section may have been updated after the patient was seen, as this information can be updated by other users. Medical History (Updated 06/17/25 @ 13:55 by BRENNON Vázquez) Marijuana smoker Hx of hepatitis C Vaginal odor Skin lesion No significant past medical history Surgical History History of tonsillectomy Hx of section Family History Mother Diabetes Father Cancer Social History Smoking Status: Never smoker second hand exposure: Yes alcohol intake: never substance use type: former substance user, heroin and IV drugs current occupational status: other Travel in the last 8 weeks?: None household members: other housing: other Have you lived/traveled outside US in past 30 days?: No Contact w/someone who lives/traveled outside US past 30 days?: No Exposure to someone with infectious disease in past 14 days?: No Do you have a fever (greater than 100.4 F or 38 C)?: No Have you tested positive for COVID-19?: No Exposed to someone with COVID-19 in past 14 days?: No Do you have a sore throat?: No Do you have a cough?: No Do you have any weakness?: No Do you have any diarrhea?: No Are you experiencing any unusual bleeding?: No Do you have any muscle aches/pain?: No Do you have any abdominal pain?: No Are you experiencing loss of taste or smell?: No Other Medical History Have you received the Flu Vaccine for this season: No Have you received the Pneumonia Vaccine: No ROS Obtained: Yes All systems reviewed & no additional complaints except as documented Physical Exam General General appearance: alert and in no apparent distress Head Head exam: atraumatic and normocephalic Eye Eye exam: Present PERRL and EOMI ENT ENT exam: Present mucous membranes moist Neck Neck exam: Present normal inspection Chest Chest inspection: Present normal inspection and symmetric chest wall rise Respiratory Respiratory exam: Present normal lung sounds bilaterally; Absent respiratory distress Cardiovascular Cardiovascular exam: Present regular rate and normal rhythm Abdominal Exam Abdominal exam: Present soft; Absent tenderness Extremities Exam Extremities exam: Present normal inspection Neurological Exam Neurological exam: Present alert and oriented X3 Psychiatric Psychiatric exam: Present normal affect Skin Skin exam: Present warm, dry and other (Healing 3 cm laceration with [address] to the patient's right palmar aspect, some serosanguineous drainage, no real evidence of any wound dehiscence, no erythema around the area, otherwise neurovascular intact) Medical Decision Making Medical Records Medical records reviewed: Yes I reviewed the patient's medical records. Screening: Per USPSTF and CDC recommendations, given the prevalence of disease in our region, it is our hospital?s policy to screen for HIV and viral Hepatitis for all patients aged 18 and over and those with ongoing risk factors. Chandan Inquiry Pt receiving controlled substance: No Vital Signs: 06/17/25 13:08 Temperature 98.2 F Temperature Source Temporal Artery Scan Pulse Rate [Right Radial] 67 Respiratory Rate 20 Blood Pressure Source [Left Arm] Automatic Cuff Blood Pressure Position [Left Arm] Sitting 02 Sat by Pulse Oximetry 100 Oxygen Delivery Method Room Air Orders (Tests/Meds): ED MEDICATIONS Generic Name Dose Route Start Last Admin Trade Name Freq PRN Reason Stop Dose Admin Bacitracin 1 each 06/17/25 13:52 Bacitracin Oint 0.9gm Udp TP 06/17/25 13:53 ONCE ONE Medical Decision Narrative: 34-year-old female presents the emergency department with a concern for suture ruptures today, differential diagnose include but not limited to, wound infection, open wound, wound dehiscence, suture failure. I discussed this patient's case with the attending physician Dr. Delarosa she saw and examined the patient as well. I cleaned the area with alcohol prep pad, utilizing sterile treatments I removed the sutures that were present x 3, will give bacitracin gel, Curlex and nonocclusive dressing on the patient's right hand wound, recommend strict ED return precautions. Will give patient Keflex 500 mg p.o. every 6 for 5 days, patient voiced understanding and agreement with current treatment plan/discharge plan. Critical Care Critical Care Time Critical Care Time: No
[2025-06-17] MEDS: BACITRACIN OINT 0.9GM UDP 1 EACH TP (13:53)
[2025-06-17 14:13] VITALS: BP 136/89; PULSE 60; RESP 20; TEMP 36.6; O2SAT 98
== END 2025-06-17 14:15 | disposition home or self-care (01) ==
PROVIDERS: Emergency Provider Student in an Organized Health Care Education/Training Program; PCP Family Medicine
DX: S61.411A Laceration without foreign body of right hand, initial encounter (principal); Z48.02 Encounter for removal of sutures; W26.8XXA Contact with other sharp object(s), not elsewhere classified, initial encounter
CPT/HCPCS: 99282

== ENCOUNTER 2025-06-29 22:33 | Outpatient (CLI) | payer SELFPAY ==
[2025-06-30 11:41] LABS: Coronavirus 19, PCR Not Detected (NotDetected); Influenza A, PCR Not Detected (NotDetected); Influenza B, PCR Not Detected (NotDetected)
== END 2025-06-29 23:59 | disposition home or self-care (01) ==
LOC: LAB.DROPOF 22:34
PROVIDERS: PCP Student in an Organized Health Care Education/Training Program; Visit Provider Student in an Organized Health Care Education/Training Program
DX: R68.83 Chills (without fever) (principal); R09.89 Other specified symptoms and signs involving the circulatory and respiratory systems; Z11.52 Encounter for screening for COVID-19
CPT/HCPCS: 87636

== ENCOUNTER 2025-07-16 11:00 | Outpatient (CLI) | payer BC, SELFPAY | END 2025-07-16 23:59 | disposition home or self-care (01) | LOC: LAB.DROPOF 07-17 12:43 | PROVIDERS: PCP Family Medicine; Visit Provider Family Medicine | DX: Z11.59 Encounter for screening for other viral diseases (principal); Z86.19 Personal history of other infectious and parasitic diseases | CPT/HCPCS: 87522 ==

== ENCOUNTER 2025-09-11 15:00 | Outpatient (CLI) | payer BC, SELFPAY | END 2025-09-11 23:59 | disposition home or self-care (01) | LOC: LAB.DROPOF 09-12 09:52 | PROVIDERS: PCP Family Medicine; Visit Provider Student in an Organized Health Care Education/Training Program | DX: Z32.01 Encounter for pregnancy test, result positive (principal) | CPT/HCPCS: 84144; 84702 ==